=== PATIENT | male | born 1985 | race Asian ===

== ENCOUNTER 2017-11-29 11:32 | Emergency (ER) | payer SELFPAY ==
[2017-11-29 12:17] VITALS: BP 148/119
--- NOTE | 2017-11-29 12:40 | ED Physician Documentation ---
History of Present Illness - Stated complaint Stated Complaint: LONG - Chief complaint Chief Complaint: General - History obtained from History obtained from: Other (Most of the history is from the mother using the Dispatch assistant administrator tablet.) - History of Present Illness Timing: Chronic (This is a 32-year-old gentleman who recently relocated from [place]. He has a history of schizophrenia and was diagnosed at age 19. He came from [facility] being maintained on carbamazepine, Zyprexa and Risperdal. He went to an urgent care about a month ago, and these meds were refilled. He went back today for refill but he was referred to the hospital for further evaluation and treatment. Specifically he complains of headaches, but these been going on since the age of 19, and when asked him if he aches currently in pain he says no. Mom says he had a CT scan of the head and [place] a little over a month ago that per her was negative. She says that he is pretty much nonfunctional and completely addicted to cigarettes, the only time he really decompensates from a behavioral perspective if worse if she tries to get him to quit smoking at which point he gets angry. He smokes about 10 packs of cigarettes per day per the mother. He also has what appears to be a fungal infection of the feet which she would like treated. In contrast to the nurse's notes, the mom says per the assistant administrator he has never had seizures or epilepsy.) Review of Systems Unable to obtain: Confused PD PAST MEDICAL HISTORY - Past Medical History Past Medical History: Yes Psych: Schizophrenia - Past Surgical History Past Surgical History: No - Present Medications Home Medications: Ambulatory Orders Medication Instructions Recorded Confirmed Carbamazepine 200 mg PO DAILY #7 tablet 11/29/17 OLANZapine [Olanzapine] 10 mg PO DAILY #7 tablet 11/29/17 Risperidone [Risperdal] 2 mg PO DAILY #7 tablet 11/29/17 Terbinafine HCl 250 mg PO DAILY #84 tablet 11/29/17 - Social History Does the pt smoke?: Yes Smoking Status: Current every day smoker Does the pt drink ETOH?: No Does the pt have substance abuse?: No - Immunizations Immunizations are current?: No - POLST Patient has POLST: No PD ED PE NORMAL - Vitals Vital signs reviewed: Yes - General General: Other (He is alert and cooperative with disconnected affect and knows the day of the week but not the date. 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 Eye Opening: Spontaneous Motor: Obeys Commands Verbal: Confused GCS Score: 14 - Psych Psych: Normal mood, Normal affect Results - Vitals Vitals: Vital Signs - 24 hr 11/29/17 12:04 Temperature 35.8 C L Heart Rate 89 Respiratory 15 Rate Blood Pressure 148/119 H O2 Saturation 99 Oxygen O2 Source Room air - Labs Labs: Laboratory Tests 11/29/17 11/29/17 11/29/17 12:55 12:55 12:55 WBC 12.3 H RBC 5.27 Hgb 15.4 Hct 46.7 MCV 88.5 MCH 29.3 MCHC 33.1 RDW 14.1 Plt Count 249 MPV 6.9 L Neut # (Auto) 10.3 H Lymph # (Auto) 1.3 L [place] # (Auto) 0.7 Eos # (Auto) 0.0 Baso # (Auto) 0.0 Absolute Nucleated RBC 0.00 Nucleated RBC % 0.0 Sodium 133 L Potassium 3.9 Chloride 102 Carbon Dioxide 26 Anion Gap 5.0 L BUN 15 Creatinine 1.0 Estimated GFR (MDRD) 87 L Glucose 108 H Calcium 8.6 Total Bilirubin 0.9 AST 52 H ALT 62 H Alkaline Phosphatase 112 Total Protein 7.3 Albumin 3.7 Globulin 3.6 Albumin/Globulin Ratio 1.0 Lipase 32 TSH 2.15 Last Dose Date UNK Last Dose Time UNK Carbamazepine 2.6 PD MEDICAL DECISION MAKING - ED course ED course: After using interpreted the initial Plan was to get labs and do tele-psychiatry consultation, however after a very short time the mom became anxious and wanted to leave. Using the assistant administrator phone again I discussed with him that I really thought that her son was pretty mentally ill and would benefit from a psychiatric consultation, however she did not want to wait or go through the process she just wanted refills of medications. I made it clear that I did not think that this was appropriate, and asked her to return soon sometime when she had more time to spend with us to go through full psychiatry consultation process. - Sepsis Event Vital Signs: Vital Signs - 24 hr 11/29/17 12:04 Temperature 35.8 C L Heart Rate 89 Respiratory 15 Rate Blood Pressure 148/119 H O2 Saturation 99 Oxygen O2 Source Room air Departure - Departure Disposition: 07 Against Medical Advice Clinical Impression: Schizophrenia Qualifiers: Schizophrenia type: unspecified Qualified Code(s): F20.9 - Schizophrenia, unspecified Tinea pedis Qualifiers: Laterality: right Qualified Code(s): B35.3 - Tinea pedis Condition: Good Record reviewed to determine appropriate education?: Yes Instructions: ED Schizophrenia General Prescriptions: Carbamazepine 200 mg PO DAILY #7 tablet OLANZapine [Olanzapine] 10 mg PO DAILY #7 tablet Risperidone [Risperdal] 2 mg PO DAILY #7 tablet Terbinafine HCl 250 mg PO DAILY #84 tablet Print Language: Mongolian Comments: Ti ngh con gato bn s c li t jorge ni chuyn vi bc s tm thn. Vui lng sera li ph ng cp cu y cng sm cng tt khi bn c mt vi gi chi shivani vi chng ti hon tt qu trnh ny. Chng ti y mi lc. Discharge Date/Time: 11/29/17 13:34
[2017-11-29 13:05] LABS: BASOPHILS % (AUTO) 0.3 %; EOSINOPHILS % (AUTO) 0.2 %; HGB - HEMOGLOBIN 15.4 g/dL (14.0-18.0); LYMPHOCYTES # (AUTO) 1.3 10^3/uL (1.5-3.5); LYMPHOCYTES % (AUTO) 10.3 %; MEAN CORPUSCULAR HEMOGLOBIN 29.3 pg (27.0-31.0); MEAN CORPUSCULAR HGB CONC 33.1 g/dL (32.0-36.0); MEAN CORPUSCULAR VOLUME 88.5 fL (80.0-94.0); MEAN PLATELET VOLUME 6.9 fL (7.4-11.4); MONOCYTES # (AUTO) 0.7 10^3/uL (0.0-1.0); MONOCYTES % (AUTO) 5.4 %; NEUTROPHILS # (AUTO) 10.3 10^3/uL (1.5-6.6); NEUTROPHILS % (AUTO) 83.8 %; PLT - PLATELET COUNT 249 10^3/uL (130-450); RED BLOOD COUNT 5.27 10^6/uL (4.70-6.10); RED CELL DISTRIBUTION WIDTH 14.1 % (12.0-15.0); WHITE BLOOD COUNT 12.3 x10^3/uL (4.8-10.8)
[2017-11-29 13:24] LABS: ALBUMIN 3.7 g/dL (3.2-5.5); ALKALINE PHOSPHATASE 112 IU/L (42-121); ALT ALANINE AMINOTRANSFERASE 62 IU/L (10-60); AST ASPARTATE AMINOTRANSFERASE 52 IU/L (10-42); BILIRUBIN,TOTAL 0.9 mg/dL (0.2-1.0); BUN - BLOOD UREA NITROGEN 15 mg/dL (6-20); CALCIUM 8.6 mg/dL (8.5-10.3); CARBAMAZEPINE (TEGRETOL) 2.6 ug/mL; CARBON DIOXIDE - CO2 26 mmol/L (21-32); CHLORIDE 102 mmol/L (101-111); GFR - MDRD 87 (>89); GLUCOSE 108 mg/dL (70-100); LIPASE 32 U/L (22-51); SODIUM 133 mmol/L (135-145); TOTAL PROTEIN 7.3 g/dL (6.7-8.2)
== END 2017-11-29 13:34 | disposition left against medical advice (07) ==
LOC: ED 11:32
DX: F20.9 Schizophrenia, unspecified (principal); B35.3 Tinea pedis; Z53.29 Procedure and treatment not carried out because of patient's decision for other reasons; F17.210 Nicotine dependence, cigarettes, uncomplicated
CPT/HCPCS: 36415; 80053; 80156; 83690; 84443; 85025; 99282; 99284

== ENCOUNTER 2018-02-19 23:41 | Emergency (ER) | payer OTHER ==
[2018-02-20 00:06] VITALS: BP 131/94
--- NOTE | 2018-02-20 00:48 | ED Physician Documentation ---
History of Present Illness - Stated complaint Stated Complaint: MALE - Chief complaint Chief Complaint: General - History obtained from History obtained from: Family (mother) - Additonal information Additional information: unable to obtain complete HPI and unable to obtain ROS and physical examination due to patient's refusal to evaluation. Patient was driven to ED by his mother; they both speak only Icelandic. Translation provided via Webcom device. When I enter the room, patient is standing at the door. As soon as the mother identifies me as the doctor, he then walks out of the room and into the hallway just outside of the room. Mother says that she brought him here for evaluation of a groin rash that has been ongoing for at least 2 weeks. She says he has been having difficulty sleeping because of the rash. She says he has refused to see a doctor because he is too embarrassed. Recently immigrated from [place], few months ago. Was evaluated in November (2017) in this ED for medication refills. Review of Systems Unable to obtain: Uncooperative PD PAST MEDICAL HISTORY - Past Medical History Psych: Schizophrenia - Past Surgical History Past Surgical History: No - Present Medications Home Medications: Ambulatory Orders Medication Instructions Recorded Confirmed Carbamazepine 200 mg PO DAILY #7 tablet 11/29/17 OLANZapine [Olanzapine] 10 mg PO DAILY #7 tablet 11/29/17 Risperidone [Risperdal] 2 mg PO DAILY #7 tablet 11/29/17 Terbinafine HCl 250 mg PO DAILY #84 tablet 11/29/17 - Allergies Allergies/Adverse Reactions: Allergies Allergy/AdvReac Type Severity Reaction Status Date / Time No Known Drug Allergies Allergy Verified 02/20/18 00:07 - Social History Does the pt smoke?: Yes Smoking Status: Current every day smoker Does the pt drink ETOH?: No Does the pt have substance abuse?: No - Immunizations Immunizations are current?: No - POLST Patient has POLST: No Results - Vitals Vitals: Oxygen O2 Source Room air PD MEDICAL DECISION MAKING - ED course Complexity details: d/w family ED course: Patient refuses to stay in the room, refuses to sit on stretcher. He walked out of the room as soon as I walked in (mother asked if I was the doctor, and when I nodded to indicate the affirmative, she said something to the patient and he then walked away from the room into the hallway). He was already standing at the door when I first walked in to the room. I repeatedly explained to the mother, via Cyracom sample collector, that the patient needs to be agreeable to be examined in order to proceed. She repeatedly tried to convince patient to come into the room for examination, but he refused. He rapidly became increasingly agitated, standing in hallway, moving further away from room, and eventually yelling very loudly at her. I continued to explain to the mother that I cannot force the patient to submit to an exam. She shows me documents that indicate a diagnosis of schizophrenia, but there is no documentation in the folder she provides to me that indicates she is P.O.A., and no documentation indicating he is incapable of making autonomous decisions. She shows me a document that indicates he is due to appear in court tomorrow afternoon and asks for a note excusing him from court. I explained that there is no indication for a medical excuse from court at this time and I would not be providing such an excuse. She asks if I can prescribe something to treat his rash, and I explained that without examining the patient , I cannot provide any prescriptions. She continued to entreat the patient to submit to exam, and he continued to yell in the hallway at her. I told mother that if he does not want to be examined, he will be discharged. I told her that if he continues to stay in the hallway and yell, the police will be called. He continued to yell and thus police were called and patient was escorted to waiting room. - Sepsis Event Vital Signs: Oxygen O2 Source Room air Departure - Departure Disposition: 01 Home, Self Care Clinical Impression: Refusal of care by patient Condition: Stable Follow-Up: [facility] [place] [Provider Group] [facility] [Provider Group] Comments: You have refused to be evaluated tonight in the emergency department. You are welcome to return at any time if you want to be evaluated. You should make an appointment to see a primary care physician as soon as possible for evaluation of your concerns and to arrange for regular prescriptions of your medications. Discharge Date/Time: 02/20/18 01:29
== END 2018-02-20 01:29 | disposition home or self-care (01) ==
LOC: ED 23:41
DX: Z53.21 Procedure and treatment not carried out due to patient leaving prior to being seen by health care provider (principal)
CPT/HCPCS: 99281

== ENCOUNTER 2018-02-26 14:56 | Outpatient (CLI) | payer OTHER | END 2018-02-26 14:57 | disposition short-term general hospital (02) | LOC: EMS 14:56 | PROVIDERS: ATTEND Surgery | DX: R60.9 Edema, unspecified (principal); R52 Pain, unspecified | CPT/HCPCS: A0425; A0429 ==

== ENCOUNTER 2019-04-07 02:33 | Outpatient (CLI) | payer MEDICAID | END 2019-04-07 02:34 | disposition critical access hospital (66) | LOC: EMS 02:33 | PROVIDERS: ATTEND Surgery | DX: R60.0 Localized edema (principal); R32 Unspecified urinary incontinence; R46.89 Other symptoms and signs involving appearance and behavior | CPT/HCPCS: A0425; A0429; A0999 ==

== ENCOUNTER 2019-04-07 02:55 | Inpatient (IN) | payer MEDICAID, OTHER ==
--- NOTE | 2019-04-07 03:08 | ED Physician Documentation ---
History of Present Illness - Stated complaint Stated Complaint: SOA, LEG SWELLING - Chief complaint Chief Complaint: Cardiac - Additonal information Additional information: This is a 34-year-old male who is Uzbek speaking, with a history of heart failure with an ejection fraction between 15 and 40%, psychogenic primary polydipsia, and schizophrenia, who was brought in for leg swelling, swelling in his groin, and problems with his mental health. History is obtained largely from patient's mother using a Uzbek telephonic hair worker, patient provides very little history. Patient's mother states that he has been hospitalized in the past for leg swelling and issues with urination. Recently he has begun urinating on the floor, and he is having difficulty walking because he is so much pain in his legs with swelling. He has had swelling up to level his waist and his scrotum is enlarged. He reportedly is compliant with his medications. His mother brings in discharge summaries, he had a admission from 02/27 to 03/18/2018 at [facility], when he was diagnosed with CHF with dilated cardiomyopathy of unknown etiology, with ejection fraction of 15% initially, improved to 40% after diuresis. He also had decompensated schizophrenia managed with olanzapine and Ativan per psychiatry, though now he takes risperidone and alprazolam. He needed fluid restriction during his stay for psychogenic polydipsia and a sodium of 129.. He is supposed to be on carvedilol, furosemide 40 mg, lisinopril. Patient denies chest pain, he might have shortness of breath-because he first answers yes but then afterwards states it feels normal. He denies pain with urination Review of Systems Unable to obtain: Confused Constitutional: denies: Fever Cardiac: reports: Pedal edema GI: denies: Abdominal Pain : reports: Other (Urinating inappropriatel y). denies: Dysuria PD PAST MEDICAL HISTORY - Past Medical History Past Medical History: Yes Cardiovascular: Congestive heart failure, Other Psych: Schizophrenia Other Past Medical History: psychogenic primary polydipsia, cardiomyopathy - Past Surgical History Past Surgical History: No - Present Medications Home Medications: Ambulatory Orders Medication Instructions Recorded Confirmed OLANZapine [Olanzapine] 10 mg PO DAILY #7 tablet 11/29/17 Risperidone [Risperdal] 2 mg PO DAILY #7 tablet 11/29/17 ALPRAZolam [Alprazolam] 0.5 mg PO 04/07/19 04/07/19 - Allergies Allergies/Adverse Reactions: Allergies Allergy/AdvReac Type Severity Reaction Status Date / Time No Known Drug Allergies Allergy Verified 02/20/18 00:07 - Social History Does the pt smoke?: Yes Smoking Status: Current every day smoker Does the pt drink ETOH?: No Does the pt have substance abuse?: No - Immunizations Immunizations are current?: No - POLST Patient has POLST: No PD ED PE NORMAL - Vitals Vital signs reviewed: Yes - General General: No acute distress - HEENT HEENT: Atraumatic, Other (Possible sclera icterus versus slight pigmentation.) - Neck Neck: Supple, no meningeal sign - Cardiac Cardiac: Other (Tachycardic, regular rhythm) - Respiratory Respiratory: No respiratory distress, Clear bilaterally - Abdomen Abdomen: Soft, Non tender, Non distended - Male Male : Other (Penis and scrotum are grossly edematous. No wounds seen. A rash consistnet with candidiasis is present in the skin.) - Derm Derm: Warm and dry - Extremities Extremities: No deformity - Neuro Neuro: Other (Difficult to fully assess due to language barries, seems to be able to answer some basic questions.) - Psych Psych: Other (cooperative and friendly, difficult to speak to even with metal forger's assistant - patient's responses are often unclear) Results - Vitals Vitals: Vital Signs - 24 hr 04/07/19 04/07/19 04/07/19 02:51 03:49 05:00 Temperature 36.8 C Heart Rate 109 H 101 H 95 Respiratory 18 18 19 Rate Blood Pressure 149/134 H 142/108 H 132/99 H O2 Saturation 100 100 100 04/07/19 06:00 Temperature Heart Rate 94 Respiratory 21 Rate Blood Pressure 140/111 H O2 Saturation 100 Oxygen O2 Source Room air - EKG (time done) 2:57 Other comments: Other comments (Rate 103, rhythm sinus tachycardia, there is slight Lateral ST depression in the precordial leads, as well as T wave inversions in V5 and V6.) - Labs Labs: Laboratory Tests 04/07/19 04/07/19 04/07/19 03:18 03:30 03:30 WBC 6.7 RBC 5.28 Hgb 13.8 L Hct 44.5 MCV 84.3 MCH 26.1 L MCHC 31.0 L RDW 15.8 H Plt Count 222 MPV 8.8 Neut # (Auto) 4.1 Lymph # (Auto) 1.7 [place] # (Auto) 0.7 Eos # (Auto) 0.2 Baso # (Auto) 0.1 Absolute Nucleated RBC 0.00 Nucleated RBC % 0.0 PT 17.2 H INR 1.5 H Sodium Potassium Chloride Carbon Dioxide Anion Gap BUN Creatinine Estimated GFR (MDRD) Glucose Calcium Total Bilirubin AST ALT Alkaline Phosphatase Troponin I High Sens B-Natriuretic Peptide Total Protein Albumin Globulin Albumin/Globulin Ratio Lipase TSH Urine Color YELLOW Urine Clarity CLEAR Urine pH 7.0 Ur Specific Carter <=1.005 Urine Protein 100 H Urine Glucose (UA) NEGATIVE Urine Ketones NEGATIVE Urine Occult Blood NEGATIVE Urine Nitrite NEGATIVE Urine Bilirubin NEGATIVE Urine Urobilinogen 2 H Ur Leukocyte Esterase NEGATIVE Urine RBC None Seen Urine WBC 0-3 Ur Squamous Epith Cells NONE SEEN Urine Bacteria None Seen Urine Mucus Marked Strands Ur Microscopic Review INDICATED Urine Culture Comments NOT INDICATED Salicylates Urine Opiates Screen NEGATIVE Ur Oxycodone Screen NEGATIVE Urine Methadone Screen NEGATIVE Ur Propoxyphene Screen NEGATIVE Acetaminophen Ur Barbiturates Screen NEGATIVE Ur Tricyclics Screen NEGATIVE Ur Phencyclidine Scrn NEGATIVE Ur Amphetamine Screen NEGATIVE U Methamphetamines Scrn NEGATIVE U Benzodiazepines Scrn POSITIVE H Urine Cocaine Screen NEGATIVE U Cannabinoids Screen NEGATIVE Ethyl Alcohol 04/07/19 04/07/19 04/07/19 03:30 03:30 03:30 WBC RBC Hgb Hct MCV MCH MCHC RDW Plt Count MPV Neut # (Auto) Lymph # (Auto) [place] # (Auto) Eos # (Auto) Baso # (Auto) Absolute Nucleated RBC Nucleated RBC % PT INR Sodium 134 L Potassium 3.9 Chloride 98 L Carbon Dioxide 26 Anion Gap 10.0 BUN 13 Creatinine 0.9 Estimated GFR (MDRD) 97 Glucose 98 Calcium 8.3 L Total Bilirubin 2.1 H AST 21 ALT 23 Alkaline Phosphatase 179 H Troponin I High Sens 120.8 H* B-Natriuretic Peptide 1436 H Total Protein 6.3 L Albumin 3.0 L Globulin 3.3 Albumin/Globulin Ratio 0.9 L Lipase 26 TSH Urine Color Urine Clarity Urine pH Ur Specific Carter Urine Protein Urine Glucose (UA) Urine Ketones Urine Occult Blood Urine Nitrite Urine Bilirubin Urine Urobilinogen Ur Leukocyte Esterase Urine RBC Urine WBC Ur Squamous Epith Cells Urine Bacteria Urine Mucus Ur Microscopic Review Urine Culture Comments Salicylates < 6.0 Urine Opiates Screen Ur Oxycodone Screen Urine Methadone Screen Ur Propoxyphene Screen Acetaminophen < 10 L Ur Barbiturates Screen Ur Tricyclics Screen Ur Phencyclidine Scrn Ur Amphetamine Screen U Methamphetamines Scrn U Benzodiazepines Scrn Urine Cocaine Screen U Cannabinoids Screen Ethyl Alcohol < 5.0 04/07/19 04/07/19 03:30 05:45 WBC RBC Hgb Hct MCV MCH MCHC RDW Plt Count MPV Neut # (Auto) Lymph # (Auto) [place] # (Auto) Eos # (Auto) Baso # (Auto) Absolute Nucleated RBC Nucleated RBC % PT INR Sodium Potassium Chloride Carbon Dioxide Anion Gap BUN Creatinine Estimated GFR (MDRD) Glucose Calcium Total Bilirubin AST ALT Alkaline Phosphatase Troponin I High Sens 125.0 H* B-Natriuretic Peptide Total Protein Albumin Globulin Albumin/Globulin Ratio Lipase TSH 2.90 Urine Color Urine Clarity Urine pH Ur Specific Carter Urine Protein Urine Glucose (UA) Urine Ketones Urine Occult Blood Urine Nitrite Urine Bilirubin Urine Urobilinogen Ur Leukocyte Esterase Urine RBC Urine WBC Ur Squamous Epith Cells Urine Bacteria Urine Mucus Ur Microscopic Review Urine Culture Comments Salicylates Urine Opiates Screen Ur Oxycodone Screen Urine Methadone Screen Ur Propoxyphene Screen Acetaminophen Ur Barbiturates Screen Ur Tricyclics Screen Ur Phencyclidine Scrn Ur Amphetamine Screen U Methamphetamines Scrn U Benzodiazepines Scrn Urine Cocaine Screen U Cannabinoids Screen Ethyl Alcohol - Rads (name of study) CXR Radiology: Other (Small lung volumes without acute cardiopulmonary abnormality) PD MEDICAL DECISION MAKING - ED course Complexity details: considered differential (CHF, PNA, UTI, cellulitis, yeast infection, schizophrenia, electrolyte abnormality) ED course: On exam patient is extremely edematous to the level of his abdomen. He is in no respiratory distress and is on room air. EKG shows slight lateral ST depression and T wave inversions, he does not seem to have any chest pain or shortness of breath. Labs are notable for an elevated BNP and troponin, second troponin is stable and given pt's history and clinical picture CHF exacerbation is much more likely than ACS/UT. He was given 40mg of lasix IV. He has signs of liver dysfunction with mildly elevated INR and bilirubin, but no AST/ALT elevations, and no RUQ tenderness. This may be secondary to congestion from his heart failure. Acetaminophen negative. Regarding his urination on the floor, it is unclear if this is due to p sychiatric decompensation or just limited mobility and edema of his genitals making it more difficult to urinate. He was admitted to the hospital under the care of Dr. Zavala for heart failure exacerbation and further work up after I updated patient and his mother on our results and the plan. They are in agreement. Departure - Departure Disposition: 66 [facility] DC/Xfer Clinical Impression: Heart failure Qualifiers: Heart failure type: unspecified Heart failure chronicity: acute on chronic Qualified Code(s): I50.9 - Heart failure, unspecified Edema Qualifiers: Edema type: unspecified Qualified Code(s): R60.9 - Edema, unspecified Discharge Date/Time: 04/07/19 07:38
[2019-04-07 03:35] LABS: MUDS CUTOFF CONCENTRATIONS CUTOFF CONC BELOW:
[2019-04-07 03:37] LABS: BILIRUBIN,URINE NEGATIVE (NEGATIVE); CLARITY,URINE CLEAR (CLEAR); GLUCOSE, URINE (UA) NEGATIVE (NEGATIVE); KETONES,URINE (UA) NEGATIVE (NEGATIVE); LEUKOCYTE ESTERASE, URINE NEGATIVE (NEGATIVE); NITRITE,URINE NEGATIVE (NEGATIVE); OCCULT BLOOD,URINE NEGATIVE (NEGATIVE); PROTEIN,URINE 100 mg/dL (NEGATIVE); UROBILINOGEN,URINE 2 E.U./dL (NORMAL)
[2019-04-07 03:42] LABS: BASOPHILS # (AUTO) 0.1 10^3/uL (0.0-0.1); BASOPHILS % (AUTO) 0.7 %; EOSINOPHILS # (AUTO) 0.2 10^3/uL (0.0-0.7); EOSINOPHILS % (AUTO) 2.7 %; HGB - HEMOGLOBIN 13.8 g/dL (14.0-18.0); LYMPHOCYTES # (AUTO) 1.7 10^3/uL (1.5-3.5); LYMPHOCYTES % (AUTO) 25.5 %; MEAN CORPUSCULAR HEMOGLOBIN 26.1 pg (27.0-31.0); MEAN CORPUSCULAR VOLUME 84.3 fL (80.0-94.0); MEAN PLATELET VOLUME 8.8 fL (7.4-11.4); MONOCYTES # (AUTO) 0.7 10^3/uL (0.0-1.0); MONOCYTES % (AUTO) 9.8 %; NEUTROPHILS # (AUTO) 4.1 10^3/uL (1.5-6.6); NEUTROPHILS % (AUTO) 60.9 %; PLT - PLATELET COUNT 222 10^3/uL (130-450); RED BLOOD COUNT 5.28 10^6/uL (4.70-6.10); RED CELL DISTRIBUTION WIDTH 15.8 % (12.0-15.0); WHITE BLOOD COUNT 6.7 x10^3/uL (4.8-10.8)
--- NOTE | 2019-04-07 03:42 | XRAY Report ---
Reason: Chest Pain Procedure Date: 04/07/2019 Accession Number: [id number] / [id number] Procedure: XR - Chest 1 View X-Ray CPT Code: 41490 FULL RESULT: EXAM: CHEST RADIOGRAPHY EXAM DATE: 04/07/2019 03:31 AM. CLINICAL HISTORY: Chest Pain. COMPARISON: None. TECHNIQUE: 1 view. FINDINGS: Lungs/Pleura: Lung volumes are small. No focal opacities evident. No pleural effusion. No pneumothorax. Mediastinum: Within exam limitations, the cardiomediastinal contour is normal. Other: None. IMPRESSION: Small lung volumes. No acute cardiopulmonary abnormality demonstrated. RADIA
[2019-04-07 03:43] LABS: BACTERIA,URINE None Seen /HPF (None Seen); MUCUS,URINE Marked Strands; RBC,URINE None Seen /HPF (0-5); SQUAMOUS EPITHELIAL CELL,UR NONE SEEN (<= Few)
[2019-04-07 03:49] LABS: AMPHETAMINE SCREEN,URINE NEGATIVE (NEGATIVE); BENZODIAZEPINES SCREEN, URINE POSITIVE (NEGATIVE); COCAINE SCREEN URINE NEGATIVE (NEGATIVE); METHADONE SCREEN, URINE NEGATIVE (NEGATIVE); METHAMPHETAMINES SCREEN, URINE NEGATIVE (NEGATIVE); OPIATE SCREEN, URINE NEGATIVE (NEGATIVE); OXYCODONE SCREEN, URINE NEGATIVE (NEGATIVE); PROPOXYPHENE SCREEN, URINE NEGATIVE (NEGATIVE); TRICYCLIC ANTIDEPRESSANT,URINE NEGATIVE (NEGATIVE)
[2019-04-07 03:49] LABS: INR 1.5 (0.8-1.2); PT - PROTHROMBIN TIME 17.2 secs (9.9-12.6)
[2019-04-07 04:00] LABS: ACETAMINOPHEN < 10 ug/mL (10-30); ALBUMIN/GLOBULIN RATIO 0.9 (1.0-2.2); ALKALINE PHOSPHATASE 179 IU/L (42-121); ALT ALANINE AMINOTRANSFERASE 23 IU/L (10-60); AST ASPARTATE AMINOTRANSFERASE 21 IU/L (10-42); BILIRUBIN,TOTAL 2.1 mg/dL (0.2-1.0); BUN - BLOOD UREA NITROGEN 13 mg/dL (6-20); CALCIUM 8.3 mg/dL (8.5-10.3); CARBON DIOXIDE - CO2 26 mmol/L (21-32); CHLORIDE 98 mmol/L (101-111); CREATININE 0.9 mg/dL (0.6-1.2); GFR - MDRD 97 (>89); GLUCOSE 98 mg/dL (70-100); LIPASE 26 U/L (22-51); SALICYLATE < 6.0 mg/dL; SODIUM 134 mmol/L (135-145); TOTAL PROTEIN 6.3 g/dL (6.7-8.2)
[2019-04-07] MEDS ORDERED: FUROSEMIDE 100 MG/10 ML VIAL IVP STA (04:50)
[2019-04-07] MEDS ORDERED: FUROSEMIDE 40 MG/4 ML VIAL IVP STA (04:56)
[2019-04-07] MEDS ORDERED: ONDANSETRON ODT 4 MG TABLET TL PRN (06:42)
[2019-04-07] MEDS ORDERED: oxyCODONE 5 MG TABLET PO PRN (06:42)
--- NOTE | 2019-04-07 07:20 | HISTORY & PHYSICAL EXAMINATION ---
Chief Complaint - Chief Complaint Chief Complaint: Leg swelling History of Present Illness - Admitted From Admitted From:: Home - History Obtained From Records Reviewed: Yes History obtained from: Primarily from mother, Patient, ER notes Exam Limitations: Patient gives short answers. - History of Present Illness HPI Comment/Other: This is a 34 year old [place] male with a past medical history significant for schizophrenia and dilated cardiomyopathy who presents from home after his mother was concerned that his lower extremities were becoming more swollen and edematous. Most of the history is obtained from the mother as the patient gives short answers which mostly consist of yes and no. His mother tells me his ilda gaffney has been going on for one year. He was hospitalized last year at [facility] for what appears to be heart failure. She states he has not been taking any of his cardiac medications. He has been taking his medications for Schizophrenia which they got from [place]. He does not see any physicians here as he refuses to follow up. His mother tells me that he was in [place] earlier this year and just returned to the area this month. He has been taking Olanzapine 10mg, Risperidone 2mg, and Xanax 0.5mg. The patient reports no chest pain, shortness of breath. He denies that his legs are painful but does endorse swelling. In the emergency department, he was tachycardic in the 100's but saturating 100% on room air. Labs revealed a sodium of 134, BNP of 1436, and troponin of 120.8. Given his significant lower extremity, Medicine was consulted for admission. History - Past Medical History Cardiovascular: reports: Congestive heart failure Psych: reports: Schizophrenia MRSA Hx?: No Other Past Medical History: Psychogenic primary polydipsia, Dilated cardiom yopathy - Family & Social History Family History Comment/Other: His mother reports that his grandmother had cardiac problems and required a "heart replacement." One of the patient's step sisters also has cardiac problems but she is unsure what they are. Reports no other family history. Living arrangement: At home Living Situation: With family Social History Notes: He currently does not work. He has been back in forth from [place] and [facility]. He just returned from [facility] one month ago. His mother reports that he smokes but does not drink alcohol. - Substance History Use: Uses substance without health or social issues: Tobacco - POLST Patient has POLST: No Meds/Allgy - Home Medications Home Medications: Ambulatory Orders Medication Instructions Recorded Confirmed OLANZapine [Olanzapine] 10 mg PO DAILY #7 tablet 11/29/17 Risperidone [Risperdal] 2 mg PO DAILY #7 tablet 11/29/17 ALPRAZolam [Alprazolam] 0.5 mg PO 04/07/19 04/07/19 - Allergies Allergies/Adverse Reactions: Allergies Allergy/AdvReac Type Severity Reaction Status Date / Time No Known Drug Allergies Allergy Verified 02/20/18 00:07 Review of Systems - Constitutional Constitutional: denies: Fatigue, Fever, Chills - Cardiovascular Cariovascular: reports: Edema. denies: Palpitations, Chest pain, Exertional dyspnea, Decr. exercise tolerance - Respiratory Respiratory: denies: SOB at rest, SOB with exertion - Gastrointestinal Gastrointestinal: denies: Abdominal pain - Neurological Neurological: denies: General weakness, Focal weakness - All Other Systems All Other Systems: reports: Other (ROS is limited as patient does not answer all questions despite using barbadian internet sales representative.) Exam - Vital Signs Reviewed Vital Signs: Yes Vital Signs: Vital Signs x48h Temp Pulse Resp BP Pulse Ox 04/07/19 06:00 94 21 140/111 H 100 04/07/19 05:00 95 19 132/99 H 100 04/07/19 03:49 101 H 18 142/108 H 100 04/07/19 02:51 36.8 C 109 H 18 149/134 H 100 - Physical Exam General Appearance: positive: No acute distress, Alert Eyes Bilateral: positive: Normal inspection ENT: positive: ENT inspection nml Neck: positive: Nml inspection Respiratory: positive: Other (Tachypnic but no rales, wheeing or rhonci.) Cardiovascular: positive: Regular rate & rhythm, No murmur, Tachycardia. negative: Bradycardia, Systolic murmur Abdomen: positive: Non-tender, No distention. negative: Tenderness, Guarding, Rebound Rectal: positive: Other (Testicles are edematous.) Skin: positive: Color nml, Warm, Dry, Other (There is dermatitis over his lower extremities at his shins likely from edema.) Extremities: positive: Pedal edema (He has significant +3 pitting edema in his lower extremities up to his abdomen.) Neurologic/Psychiatric: positive: Oriented x3, Motor nml. negative: Weakness Conclusion/Plan - Problem List (1) Acute on chronic HFrEF (heart failure with reduced ejection fraction) Conclusion/Plan: Presents with significant lower extremity edema up to the abdomen and testicles. Fortunately he is not hypoxic although BNP is >1000. He will need aggressive diuresis with Lasix 40mg IV twice daily. Resume Carvedilol and Lisinopril. Fluid restriction of 2L and low sodium diet. Strict I's and O's and daily weights. Elevate lower extremities. Obtain outside records. (2) Dilated cardiomyopathy Conclusion/Plan: We have requested records from his prior hospitalizations at [facility] and [facility] to obtain further information on his cardiac history. It appears he was hospitalized last year at [facility] and his EF was as low as 15% at that time and improved to 40% prior to discharge. He unfortunately has not been taking his cardiac medications so there is concern his EF may have decreased. The etiology of his cardiomyopathy is not clear. Will obtain an Echo tomorrow for further evaluation. (3) Elevated troponin Conclusion/Plan: His troponin is >100 although the increase appears to be plateauing. Suspect this may be demand ischemia in the setting of heart failure although his EKG does reveal T-wave inversions. There is no prior EKG to compare to. Will trend troponin and if it continues to rise, will administer Aspirin and contact Cardiology. (4) Elevated INR Conclusion/Plan: His INR is elevated at 1.5 which I suspect is likely congestive hepatopathy although his AST/ALT are normal. He does not drink alcohol per the mother which makes alcohol less likely of a cause. He also does not appear malnourish so do not suspect vitamin K deficiency. Will check INR in the AM again and obtain ultrasound of the liver. (5) Schizophrenia Conclusion/Plan: Stable. Obtains his medications from [place] where he was last month. Will continue Olanzapine, Risperidone, and Xanax PRN. Qualifiers: Schizophrenia type: unspecified Qualified Code(s): F20.9 - Schizophrenia, unspecified - Lab Results Lab results reviewed: Yes Fish Bones: 04/07/19 03:30 04/07/19 03:30 - Diagnostic Imaging Results Diagnostic Imaging Results: positive: Final report reviewed - EKG Results EKG Interpreted Independently: Yes EKG Comparison: No prior EKG EKG Findings: Sinus tachycardia with T-wave inversions in leads II, II, aVF, V5, and V6. No prior EKG to compare to. Core Measures - Anticipated LOS I expect patient to be DC'd or transferred within 96 hours.: Yes - Issues Hospital Issues and Management Plan: Acute on chronic heart failure requiring IV diuresis. - DVT/VTE - Prophylaxis VTE/DVT Device ordered at admit?: No Not Ordered - Medical Reason: Contraindicated VTE/DVT Prophylaxis med ordered at admit?: Yes
[2019-04-07] MEDS ORDERED: ACETAMINOPHEN 325 MG TABLET PO PRN (08:25)
[2019-04-07] MEDS: SODIUM CHLORIDE FLUSH 0.9% 10 ML SYRINGE IVP SCH ×2 (09:15→16:36)
[2019-04-07] MEDS: ENOXAPARIN 40 MG/0.4 ML SYRINGE SUBQ SCH (09:15)
[2019-04-07] MEDS: CARVEDILOL 3.125 MG TABLET PO SCH ×2 (09:17→20:36)
[2019-04-07] MEDS: LISINOPRIL 5 MG TABLET PO SCH (09:17)
[2019-04-07] MEDS: POLYETHYLENE GLYCOL 3350 17 GM PACKET PO SCH (10:17)
--- NOTE | 2019-04-07 11:30 | Ultrasound Report ---
Reason: Anasarca and elevated INR. Eval liver. Procedure Date: 04/07/2019 Accession Number: [id number] / [id number] Procedure: US - Abdomen Limited CPT Code: FULL RESULT: EXAM: ABDOMEN ULTRASOUND LIMITED, RUQ EXAM DATE: 04/07/2019 09:23 AM. CLINICAL HISTORY: Anasarca and elevated INR. Evaluate liver. COMPARISON: None. TECHNIQUE: Real-time scanning was performed with static images obtained. FINDINGS: Liver: Upper normal in size and normal in echotexture. 17.8 cm. Main portal vein flow: Hepatopetal. Gallbladder: Nonspecific wall thickening to 5 mm given presence of ascites. Patient is nontender to imaging. No stones. Biliary System: CBD is not specifically assessed. No intrahepatic biliary ductal dilatation. Other: Mild ascites noted in the right upper and lower quadrants and left lower quadrant. Small slip of fluid in Morison's pouch. Dilated urinary bladder measuring 15.5 x 10.3 x 10.6 cm, estimated volume 890 cc. IMPRESSION: 1. Mild ascites. No specific abnormality of the liver demonstrated. 2. Dilated urinary bladder; estimated volume 890 cc. RADIA
[2019-04-07] MEDS ORDERED: LIDOCAINE 2% URO-JET 5 ML SYRINGE UR ONE (13:24)
[2019-04-07] MEDS ORDERED: FUROSEMIDE 40 MG/4 ML VIAL IVP SCH (14:00)
[2019-04-07] MEDS: FUROSEMIDE 40 MG/4 ML VIAL IVP SCH (16:36)
[2019-04-07 20:12] LABS: CALCIUM 8.3 mg/dL (8.5-10.3); CREATININE 1.2 mg/dL (0.6-1.2)
--- NOTE | 2019-04-07 20:15 | Ultrasound Report ---
Reason: Urinary retention. Evaluate for hydronephrosis. Procedure Date: 04/07/2019 Accession Number: [id number] / [id number] Procedure: US - Retroperitoneal CPT Code: FULL RESULT: EXAM: RENAL ULTRASOUND EXAM DATE: 04/07/2019 06:55 PM. CLINICAL HISTORY: Urinary retention. Evaluate for hydronephrosis. COMPARISON: ABDOMEN LIMITED 04/07/2019 8:41 AM. TECHNIQUE: Real-time scanning was performed with static images obtained. FINDINGS: Right Kidney: 9.9 x 5.4 x 5.4 cm. Suboptimal visualization. No hydronephrosis or definite stone. Left Kidney: 12.3 x 6.4 x 5.0 cm. Suboptimal visualization. No hydronephrosis or definite stone. Bladder: Bilateral jets seen. The prevoid bladder volume was 1272 cc, markedly distended. The postvoid bladder volume was 640.5 cc. Other: Small amount of free fluid in the abdomen/pelvis. Gallbladder wall thickening again demonstrated. IMPRESSION: 1. No hydronephrosis. Limited exam. 2. Markedly distended urinary bladder with large postvoid residual. 3. Small amount of ascites. RADIA
[2019-04-07] MEDS: risperiDONE 1 MG TABLET PO SCH (20:36)
[2019-04-08] MEDS: SODIUM CHLORIDE FLUSH 0.9% 10 ML SYRINGE IVP SCH ×3 (01:36→20:43)
[2019-04-08] MEDS: ALPRAZolam 0.25 MG TABLET PO PRN (01:43)
[2019-04-08 05:36] LABS: BASOPHILS % (AUTO) 0.5 %; EOSINOPHILS # (AUTO) 0.1 10^3/uL (0.0-0.7); HGB - HEMOGLOBIN 13.2 g/dL (14.0-18.0); LYMPHOCYTES # (AUTO) 1.3 10^3/uL (1.5-3.5); LYMPHOCYTES % (AUTO) 19.3 %; MEAN CORPUSCULAR HEMOGLOBIN 25.2 pg (27.0-31.0); MEAN CORPUSCULAR HGB CONC 30.5 g/dL (32.0-36.0); MEAN CORPUSCULAR VOLUME 82.8 fL (80.0-94.0); MEAN PLATELET VOLUME 8.8 fL (7.4-11.4); MONOCYTES # (AUTO) 0.5 10^3/uL (0.0-1.0); MONOCYTES % (AUTO) 7.9 %; NEUTROPHILS # (AUTO) 4.6 10^3/uL (1.5-6.6); NEUTROPHILS % (AUTO) 70.1 %; PLT - PLATELET COUNT 228 10^3/uL (130-450); RED BLOOD COUNT 5.23 10^6/uL (4.70-6.10); RED CELL DISTRIBUTION WIDTH 15.9 % (12.0-15.0); WHITE BLOOD COUNT 6.5 x10^3/uL (4.8-10.8)
[2019-04-08 05:43] LABS: INR 1.6 (0.8-1.2); PT - PROTHROMBIN TIME 17.5 secs (9.9-12.6)
[2019-04-08 05:54] LABS: CREATININE 1.2 mg/dL (0.6-1.2)
[2019-04-08 05:55] LABS: CALCIUM 8.3 mg/dL (8.5-10.3); MAGNESIUM 1.9 mg/dL (1.7-2.8)
[2019-04-08] MEDS: FUROSEMIDE 40 MG/4 ML VIAL IVP SCH ×2 (06:52→13:24)
[2019-04-08] MEDS: SODIUM CHLORIDE FLUSH 0.9% 10 ML SYRINGE IVP PRN ×3 (06:53→13:24)
[2019-04-08] MEDS ORDERED: POTASSIUM CHLORIDE 20 MEQ TABLET PO ONE (07:41)
--- NOTE | 2019-04-08 08:59 | PROVIDER PROGRESS NOTE ---
Subjective - Prog Note Date Prog Note Date: 04/08/19 - Subjective Subjective: He continues to deny chest pain and dyspnea. Still has significant scrotal edema. Reports no abdominal pain. He is hungry and requesting breakfast this morning. Current Medications - Current Medications Current Medications: Active Medications Acetaminophen (Tylenol) 650 mg PO Q4HR PRN PRN Reason: Pain or Fever > 38C (100.4F) Alprazolam (Xanax) 0.5 mg PO BID PRN PRN Reason: Anxiety Last Admin: 04/08/19 01:43 Dose: 0.5 mg Carvedilol (Coreg) 3.125 mg PO BID [facility] Last Admin: 04/07/19 20:36 Dose: 3.125 mg Enoxaparin Sodium (Lovenox) 40 mg SUBQ DAILY [facility] Last Admin: 04/07/19 09:15 Dose: 40 mg Furosemide (Lasix Inj 40 Mg Vial) 40 mg IVP BIDDIURETIC [facility] Last Admin: 04/08/19 06:52 Dose: 40 mg Lisinopril (Zestril) 5 mg PO DAILY [facility] Last Admin: 04/07/19 09:17 Dose: 5 mg Olanzapine (Zyprexa Odt) 10 mg TL DAILY [facility] Ondansetron HCl (Zofran Odt) 4 mg TL Q6HR PRN PRN Reason: Nausea / Vomiting Oxycodone HCl (Roxicodone) 5 mg PO Q4HR PRN PRN Reason: Pain 5 to 7 Last Admin: 04/08/19 01:43 Dose: 5 mg Polyethylene Glycol (Miralax) 17 gm PO DAILY [facility] Last Admin: 04/07/19 10:17 Dose: Not Given Risperidone (Risperdal) 2 mg PO QPM [facility] Last Admin: 04/07/19 20:36 Dose: 2 mg Sodium Chloride (Normal Saline Flush 0.9%) 10 ml IVP PRN PRN PRN Reason: NEEDED PER PROVIDER ORDERS Last Admin: 04/08/19 06:53 Dose: 10 ml Sodium Chloride (Normal Saline Flush 0.9%) 10 ml IVP 0100,0900,1700 [facility] Last Admin: 04/08/19 01:36 Dose: 10 ml Tamsulosin HCl (Flomax) 0.4 mg PO DAILY [facility] ALPRAZolam [Alprazolam] 0.5 mg PO 04/07/19 Objective - Vital Signs/Intake & Output Reviewed Vital Signs: Yes Vital Signs: Vital Signs x48h Temp Pulse Resp BP Pulse Ox 04/08/19 08:39 37.2 C 85 20 107/85 H 94 04/08/19 04:04 37.0 C 100 16 139/96 H 99 04/08/19 01:00 36.9 C 92 20 132/90 H 96 Intake & Output: Intake & Output 04/05/19 04/06/19 04/07/19 04/08/19 23:59 23:59 23:59 23:59 Intake Total 1220 300 Output Total 47341 2000 Balance -9180 -1700 - Objective General Appearance: positive: No acute distress, Alert Eyes Bilateral: positive: Normal inspection ENT: positive: ENT inspection nml Neck: positive: Nml inspection Respiratory: positive: No respiratory distress. negative: Wheezes, Rales, Rhonchi Cardiovascular: positive: Regular rate & rhythm, No murmur, Tachycardia. negative: Systolic murmur, Diastolic murmur Abdomen: positive: Non-tender, No distention. negative: Tenderness, Guarding, Rebound Rectal: positive: Other (Significant scrotal edema. Uncircumcised penis.) Skin: positive: Other (Chronic skin changes over lower extremities.) Extremities: positive: Full ROM, Pedal edema (+2 to 3 pitting edema in lower extremities up to his abdomen.) Neurologic/Psychiatric: positive: Motor nml, Other (No focal motor deficits). negative: Weakness - Lab Results Fish Bones: 04/08/19 04:56 04/08/19 04:56 Other Labs: Lab Results x24hrs 04/08/19 04/08/19 04/08/19 Range/Units 04:56 04:56 04:56 WBC (4.8-10.8) x10^3/uL RBC (4.70-6.10) 10^6/uL Hgb (14.0-18.0) g/dL Hct (42.0-52.0) % MCV (80.0-94.0) fL MCH (27.0-31.0) pg MCHC (32.0-36.0) g/dL RDW (12.0-15.0) % Plt Count (130-450) 10^3/uL MPV (7.4-11.4) fL Neut # (Auto) (1.5-6.6) 10^3/uL Lymph # (Auto) (1.5-3.5) 10^3/uL [place] # (Auto) (0.0-1.0) 10^3/uL Eos # (Auto) (0.0-0.7) 10^3/uL Baso # (Auto) (0.0-0.1) 10^3/uL Absolute Nucleated RBC x10^3/uL Nucleated RBC % /100WBC PT 17.5 H (9.9-12.6) secs INR 1.6 H (0.8-1.2) Sodium 139 (135-145) mmol/L Potassium 3.4 L (3.5-5.0) mmol/L Chloride 102 (101-111) mmol/L Carbon Dioxide 26 (21-32) mmol/L Anion Gap 11.0 (6-13) BUN 17 (6-20) mg/dL Creatinine 1.2 (0.6-1.2) mg/dL Estimated GFR (MDRD) 69 L (>89) Glucose 123 H (70-100) mg/dL Calcium 8.3 L (8.5-10.3) mg/dL Magnesium 1.9 (1.7-2.8) mg/dL Troponin I High Sens (2.3-19.7) pg/mL B-Natriuretic Peptide 2014 H (5-100) pg/mL 04/08/19 04/07/19 04/07/19 Range/Units 04:56 17:59 12:05 WBC 6.5 (4.8-10.8) x10^3/uL RBC 5.23 (4.70-6.10) 10^6/uL Hgb 13.2 L (14.0-18.0) g/dL Hct 43.3 (42.0-52.0) % MCV 82.8 (80.0-94.0) fL MCH 25.2 L (27.0-31.0) pg MCHC 30.5 L (32.0-36.0) g/dL RDW 15.9 H (12.0-15.0) % Plt Count 228 (130-450) 10^3/uL MPV 8.8 (7.4-11.4) fL Neut # (Auto) 4.6 (1.5-6.6) 10^3/uL Lymph # (Auto) 1.3 L (1.5-3.5) 10^3/uL [place] # (Auto) 0.5 (0.0-1.0) 10^3/uL Eos # (Auto) 0.1 (0.0-0.7) 10^3/uL Baso # (Auto) 0.0 (0.0-0.1) 10^3/uL Absolute Nucleated RBC 0.00 x10^3/uL Nucleated RBC % 0.0 /100WBC PT (9.9-12.6) secs INR (0.8-1.2) Sodium 138 (135-145) mmol/L Potassium 3.7 (3.5-5.0) mmol/L Chloride 101 (101-111) mmol/L Carbon Dioxide 29 (21-32) mmol/L Anion Gap 8.0 (6-13) BUN 15 (6-20) mg/dL Creatinine 1.2 (0.6-1.2) mg/dL Estimated GFR (MDRD) 69 L (>89) Glucose 129 H (70-100) mg/dL Calcium 8.3 L (8.5-10.3) mg/dL Magnesium (1.7-2.8) mg/dL Troponin I High Sens 118.1 H* (2.3-19.7) pg/mL B-Natriuretic Peptide (5-100) pg/mL ABX Reporting Has patient been on IV antibiotics over the past 48 hours?: No Assessment/Plan - Problem List (1) Acute on chronic HFrEF (heart failure with reduced ejection fraction) Impression: His weight is down nearly 7kg but he continues to significant lower extremity edema. BNP increased today to >2000. His urine output is excellent as he is negative 9.1L. Will continue diurese with Lasix IV twice day. Continue Carvedilol and Lisinopril. Continue fluid restriction and low sodium diet. (2) Dilated cardiomyopathy Impression: We are still awaiting to obtain his outside records regarding his cardiomyopathy. An Echo has been ordered and will be obtained today. (3) Urinary retention with incomplete bladder emptying Impression: His PVR's yesterday were >1L and his bladder is markedly distended on imaging. Fortunately there is no hydronephrosis on imaging. A baumann catheter was unable to be placed yesterday despite multiple attempts by different providers. As he is still able to urinate when prompted, will not transfer him at this for a Urologic evaluation. Will continue bladder scan every 4 hours and will continue to prompt him to urinate. (4) Elevated troponin Impression: His troponins peaked in the 120's and he continues to report no chest pain. Likely demand ischemia given his heart failure. (5) Elevated INR Impression: His INR continues to rise to 1.5. His liver appeared normal on ultrasound and the mild ascites is likely related to heart failure. Suspect this is congestive hepatopathy given his heart failure and edema. Continue to trend INR and monitor for bleeding. (6) Schizophrenia Impression: Stable. Continue Olanzapine, Risperidone, and Xanax PRN. Qualifiers: Schizophrenia type: unspecified Qualified Code(s): F20.9 - Schizophrenia, unspecified
[2019-04-08] MEDS: ENOXAPARIN 40 MG/0.4 ML SYRINGE SUBQ SCH (09:09)
[2019-04-08] MEDS: TAMSULOSIN 0.4 MG CAPSULE PO SCH (09:09)
[2019-04-08] MEDS: OLANZapine ODT 5 MG TABLET TL SCH (09:09)
[2019-04-08] MEDS: LISINOPRIL 5 MG TABLET PO SCH (09:09)
[2019-04-08] MEDS: POLYETHYLENE GLYCOL 3350 17 GM PACKET PO SCH (09:09)
[2019-04-08] MEDS: CARVEDILOL 3.125 MG TABLET PO SCH ×2 (09:09→20:40)
[2019-04-08] MEDS ORDERED: MORPHINE 2 MG/ML CARPUJECT IVP STA ×2 (10:33→11:21)
[2019-04-08] MEDS ORDERED: LIDOCAINE 2% URO-JET 5 ML SYRINGE UR ONE (10:37)
[2019-04-08] MEDS ORDERED: MORPHINE 2 MG/ML CARPUJECT ONE (11:31)
[2019-04-08] MEDS: risperiDONE 1 MG TABLET PO SCH (20:41)
[2019-04-09] MEDS: SODIUM CHLORIDE FLUSH 0.9% 10 ML SYRINGE IVP SCH ×3 (03:39→20:34)
[2019-04-09] MEDS: ALPRAZolam 0.25 MG TABLET PO PRN (03:48)
[2019-04-09] MEDS: SODIUM CHLORIDE FLUSH 0.9% 10 ML SYRINGE IVP PRN ×2 (05:45→14:10)
[2019-04-09] MEDS: FUROSEMIDE 40 MG/4 ML VIAL IVP SCH ×2 (05:45→14:08)
[2019-04-09] MEDS: CARVEDILOL 3.125 MG TABLET PO SCH ×3 (06:19→20:35)
[2019-04-09] MEDS: OLANZapine ODT 5 MG TABLET TL SCH (08:31)
[2019-04-09] MEDS: POLYETHYLENE GLYCOL 3350 17 GM PACKET PO SCH (08:31)
[2019-04-09] MEDS: TAMSULOSIN 0.4 MG CAPSULE PO SCH (08:31)
[2019-04-09] MEDS: LISINOPRIL 5 MG TABLET PO SCH (08:31)
[2019-04-09] MEDS: ENOXAPARIN 40 MG/0.4 ML SYRINGE SUBQ SCH (08:31)
--- NOTE | 2019-04-09 11:13 | PROVIDER PROGRESS NOTE ---
Assessment/Plan - Problem List (1) Acute on chronic HFrEF (heart failure with reduced ejection fraction) Assessment/Plan: He is having very good urine output and neg fluid balance. Weight is down 9 kg since admission. Continue with the resumed cardiac meds, low salt diet, follow I's and O's and daily weights. (2) Dilated cardiomyopathy Assessment/Plan: He was Dx with this possibly last year. Apparently, his EF improved from 15% to 40% on meds, in the past. More recently, his meds were discontinued by him, unknown time ago. The Echo done this admission again shows LV dilation and EF 15%. Meds resumed (3) Noncompliance with immunization regimen Assessment/Plan: Noncompliance to hs CHF meds was reported by his mother at admission. (4) Elevated INR Assessment/Plan: He reused his a.m. blood draw today, so no INR to re-eval. It was likely elevated due to passive liver congestion. Continue plan for diuresis. Check INR gsin when he agrees. (5) Urinary retention with incomplete bladder emptying Assessment/Plan: Th records from [facility] from 03/06, described a similar presentation and the urinary retention was felt to be due to leg and scrotal edema. He does urinate here. Continue to monitor I's and O's. (6) Schizophrenia Qualifiers: Schizophrenia type: unspecified Qualified Code(s): F20.9 - Schizophrenia, unspecified Assessment/Plan: he apparently was taking his psych meds from [place]. They are continued while here. He is pacing in room this a.m. despite getting a sedative about 4 hours earlier. (7) Hypokalemia Assessment/Plan: Related to aggressive diuresis. Replace K and follow labs. - Current Meds Current Meds: Current Medications Generic Name Dose Route Start Last Admin Trade Name Freq PRN Reason Stop Dose Admin Alprazolam 0.5 mg 04/07/19 14:52 04/09/19 03:48 Xanax PO 0.5 mg BID PRN Administration Anxiety Carvedilol 6.25 mg 04/09/19 09:00 04/09/19 08:50 Coreg PO 3.125 mg BID RADHA Administration Enoxaparin Sodium 40 mg 04/07/19 09:00 04/09/19 08:31 Lovenox SUBQ 40 mg DAILY RADHA Administration Furosemide 40 mg 04/07/19 17:00 04/09/19 05:45 Lasix Inj 40 Mg Vial IVP 40 mg BIDDIURETIC RADHA Administration Lisinopril 10 mg 04/09/19 09:00 04/09/19 08:31 Zestril PO 10 mg DAILY RADHA Administration Olanzapine 10 mg 04/08/19 09:00 04/09/19 08:31 Zyprexa Odt TL 10 mg DAILY RADHA Administration Oxycodone HCl 5 mg 04/07/19 06:42 04/08/19 01:43 Roxicodone PO 5 mg Q4HR PRN Administration Pain 5 to 7 Polyethylene Glycol 17 gm 04/07/19 09:00 04/09/19 08:31 Miralax PO Not Given DAILY RADHA Risperidone 2 mg 04/07/19 21:00 04/08/19 20:41 Risperdal PO 2 mg QPM RADHA Administration Sodium Chloride 10 ml 04/07/19 06:42 04/09/19 05:45 Normal Saline Flush 0.9% IVP 10 ml PRN PRN Administration NEEDED PER PROVIDER ORDERS Sodium Chloride 10 ml 04/07/19 09:00 04/09/19 08:32 Normal Saline Flush 0.9% IVP 10 ml 0100,0900,1700 RADHA Administration Tamsulosin HCl 0.4 mg 04/08/19 09:00 04/09/19 08:31 Flomax PO 0.4 mg DAILY RADHA Administration - Lab Result Fish Bone Diagrams: 04/08/19 04:56 04/08/19 04:56 - Additional Planning My Orders: My Active Orders 04/09/19 09:00 Carvedilol [Coreg] 6.25 mg PO BID Lisinopril [Zestril] 10 mg PO DAILY Subjective - Subjective Patient Reports: Resting Comfortably Objective Vital Signs: Vital Signs - 24 hr 04/08/19 04/08/19 04/08/19 12:17 15:30 20:21 Temperature 37.1 C 36.7 C 36.5 C Heart Rate [ 93 92 Brachial] Heart Rate [ 103 H Radial] Respiratory 18 24 24 Rate Blood Pressure 130/95 H [Left Brachial artery] Blood Pressure 100/75 [Left] Blood Pressure 131/97 H [Right Brachial artery] O2 Saturation 100 99 99 04/09/19 04/09/19 04/09/19 03:43 06:06 06:13 Temperature 35.8 C L 35.7 C L Heart Rate [ 98 77 Brachial] Heart Rate [ Radial] Respiratory 16 16 Rate Blood Pressure [Left Brachial artery] Blood Pressure [Left] Blood Pressure 139/114 H 148/114 H 140/110 H [Right Brachial artery] O2 Saturation 97 94 04/09/19 08:08 Temperature 36.3 C L Heart Rate [ 92 Brachial] Heart Rate [ Radial] Respiratory 18 Rate Blood Pressure [Left Brachial artery] Blood Pressure [Left] Blood Pressure 128/98 H [Right Brachial artery] O2 Saturation 100 Oxygen O2 Source Room air I&O (Last 24 Hrs): Intake and Output Totals x24h 04/07/19 04/08/19 04/09/19 23:59 23:59 23:59 Intake Total 1220 1150 240 Output Total 21743 8925 1500 Balance -9179 -7611 -1260 General: Other (Sleeping supine, awoke and was in no distress) HEENT: Mucous membr. moist/pink, Other (Skin leathery and tanned) Cardiovascular: Regular rate, No murmurs Respiratory: No respiratory distress Abdomen: Soft Extremities: Other (1+ edema) - Results Results: Laboratory Results WBC 6.5 x10^3/uL (4.8-10.8) 04/08/19 04:56 RBC 5.23 10^6/uL (4.70-6.10) 04/08/19 04:56 Hgb 13.2 g/dL (14.0-18.0) L 04/08/19 04:56 Hct 43.3 % (42.0-52.0) 04/08/19 04:56 MCV 82.8 fL (80.0-94.0) 04/08/19 04:56 MCH 25.2 pg (27.0-31.0) L 04/08/19 04:56 MCHC 30.5 g/dL (32.0-36.0) L 04/08/19 04:56 RDW 15.9 % (12.0-15.0) H 04/08/19 04:56 Plt Count 228 10^3/uL (130-450) 04/08/19 04:56 MPV 8.8 fL (7.4-11.4) 04/08/19 04:56 Neut # (Auto) 4.6 10^3/uL (1.5-6.6) 04/08/19 04:56 Lymph # (Auto) 1.3 10^3/uL (1.5-3.5) L 04/08/19 04:[address] [place] # (Auto) 0.5 10^3/uL (0.0-1.0) 04/08/19 04:56 Eos # (Auto) 0.1 10^3/uL (0.0-0.7) 04/08/19 04:56 Baso # (Auto) 0.0 10^3/uL (0.0-0.1) 04/08/19 04:56 Absolute Nucleated RBC 0.00 x10^3/uL 04/08/19 04:56 Nucleated RBC % 0.0 /100WBC 04/08/19 04:56 PT 17.5 secs (9.9-12.6) H 04/08/19 04:56 INR 1.6 (0.8-1.2) H 04/08/19 04:56 Sodium 139 mmol/L (135-145) 04/08/19 04:56 Potassium 3.4 mmol/L (3.5-5.0) L 04/08/19 04:56 Chloride 102 mmol/L (101-111) 04/08/19 04:56 Carbon Dioxide 26 mmol/L (21-32) 04/08/19 04:56 Anion Gap 11.0 (6-13) 04/08/19 04:56 BUN 17 mg/dL (6-20) 04/08/19 04:56 Creatinine 1.2 mg/dL (0.6-1.2) 04/08/19 04:56 Estimated GFR (MDRD) 69 (>89) L 04/08/19 04:56 Glucose 123 mg/dL (70-100) H 04/08/19 04:56 Calcium 8.3 mg/dL (8.5-10.3) L 04/08/19 04:56 Magnesium 1.9 mg/dL (1.7-2.8) 04/08/19 04:56 Total Bilirubin 2.1 mg/dL (0.2-1.0) H 04/07/19 03:30 AST 21 IU/L (10-42) 04/07/19 03:30 ALT 23 IU/L (10-60) 04/07/19 03:30 Alkaline Phosphatase 179 IU/L (42-121) H 04/07/19 03:30 Troponin I High Sens 118.1 pg/mL (2.3-19.7) H* 04/07/19 12:05 B-Natriuretic Peptide 2014 pg/mL (5-100) H 04/08/19 04:56 Total Protein 6.3 g/dL (6.7-8.2) L 04/07/19 03:30 Albumin 3.0 g/dL (3.2-5.5) L 04/07/19 03:30 Globulin 3.3 g/dL (2.1-4.2) 04/07/19 03:30 Albumin/Globulin Ratio 0.9 (1.0-2.2) L 04/07/19 03:30 Lipase 26 U/L (22-51) 04/07/19 03:30 TSH 2.90 uIU/mL (0.34-5.60) 04/07/19 03:30 Urine Color YELLOW 04/07/19 03:18 Urine Clarity CLEAR (CLEAR) 04/07/19 03:18 Urine pH 7.0 PH (5.0-7.5) 04/07/19 03:18 Ur Specific [place] <=1.005 (1.002-1.030) 04/07/19 03:18 Urine Protein 100 mg/dL (NEGATIVE) H 04/07/19 03:18 Urine Glucose (UA) NEGATIVE mg/dL (NEGATIVE) 04/07/19 03:18 Urine Ketones NEGATIVE mg/dL (NEGATIVE) 04/07/19 03:18 Urine Occult Blood NEGATIVE (NEGATIVE) 04/07/19 03:18 Urine Nitrite NEGATIVE (NEGATIVE) 04/07/19 03:18 Urine Bilirubin NEGATIVE (NEGATIVE) 04/07/19 03:18 Urine Urobilinogen 2 E.U./dL (NORMAL) H 04/07/19 03:18 Ur Leukocyte Esterase NEGATIVE (NEGATIVE) 04/07/19 03:18 Urine RBC None Seen /HPF (0-5) 04/07/19 03:18 Urine WBC 0-3 /HPF (0-3) 04/07/19 03:18 Ur Squamous Epith Cells NONE SEEN (<= Few) 04/07/19 03:18 Urine Bacteria None Seen /HPF (None Seen) 04/07/19 03:18 Urine Mucus Marked Strands 04/07/19 03:18 Ur Microscopic Review INDICATED 04/07/19 03:18 Urine Culture Comments NOT INDICATED 04/07/19 03:18 Salicylates < 6.0 mg/dL 04/07/19 03:30 Urine Opiates Screen NEGATIVE (NEGATIVE) 04/07/19 03:18 Ur Oxycodone Screen NEGATIVE (NEGATIVE) 04/07/19 03:18 Urine Methadone Screen NEGATIVE (NEGATIVE) 04/07/19 03:18 Ur Propoxyphene Screen NEGATIVE (NEGATIVE) 04/07/19 03:18 Acetaminophen < 10 ug/mL (10-30) L 04/07/19 03:30 Ur Barbiturates Screen NEGATIVE (NEGATIVE) 04/07/19 03:18 Ur Tricyclics Screen NEGATIVE (NEGATIVE) 04/07/19 03:18 Ur Phencyclidine Scrn NEGATIVE (NEGATIVE) 04/07/19 03:18 Ur Amphetamine Screen NEGATIVE (NEGATIVE) 04/07/19 03:18 U Methamphetamines Scrn NEGATIVE (NEGATIVE) 04/07/19 03:18 U Benzodiazepines Scrn POSITIVE (NEGATIVE) H 04/07/19 03:18 Urine Cocaine Screen NEGATIVE (NEGATIVE) 04/07/19 03:18 U Cannabinoids Screen NEGATIVE (NEGATIVE) 04/07/19 03:18 Ethyl Alcohol < 5.0 mg/dL 04/07/19 03:30
[2019-04-09] MEDS: risperiDONE 1 MG TABLET PO SCH (20:34)
[2019-04-10] MEDS: FUROSEMIDE 40 MG/4 ML VIAL IVP SCH ×2 (06:07→12:09)
[2019-04-10] MEDS: SODIUM CHLORIDE FLUSH 0.9% 10 ML SYRINGE IVP PRN (06:11)
[2019-04-10] MEDS: SODIUM CHLORIDE FLUSH 0.9% 10 ML SYRINGE IVP SCH ×3 (06:17→18:23)
[2019-04-10] MEDS: ALPRAZolam 0.25 MG TABLET PO PRN (06:33)
[2019-04-10] MEDS: LISINOPRIL 5 MG TABLET PO SCH (08:12)
[2019-04-10] MEDS: OLANZapine ODT 5 MG TABLET TL SCH (08:12)
[2019-04-10] MEDS: CARVEDILOL 3.125 MG TABLET PO SCH (08:13)
[2019-04-10] MEDS: TAMSULOSIN 0.4 MG CAPSULE PO SCH (08:14)
--- NOTE | 2019-04-10 08:47 | Discharge Plan ---
Discharge Plan Problem Reviewed?: Yes Disposition: Home, Self Care Condition: Stable Prescriptions: Carvedilol 6.25 mg PO BID #60 tablet Furosemide [Lasix] 20 mg PO DAILY #30 tablet Lisinopril [Zestril] 10 mg PO DAILY #30 tablet Spironolactone 25 mg PO DAILY #30 tablet Tamsulosin [Flomax] 0.4 mg PO DAILY #30 capsule Diet: Low Sodium Activity Restrictions: Activity as Tolerated Shower Restrictions: No Instruction Topics: Heart Failure Meds Control Health Concerns: Admitted with fluid overload from not taking heart medications for your weak heart. Plan of Treatment: Restart the heart medications and continue your psychiatric medications. Care Goals: Stabilize and improve heart function. Assessment: This was communicated to the patient and mother, using a draw bench operator. Additional Instructions or Follow Up instructions: See your doctor in 1-2 weeks in follow-up and to get refills of all your medicines. No Smoking: If you smoke, Please STOP! Call for help. Follow-up with: Emerson Bai MD [Provider Admit Priv/Credential] -
[2019-04-10] MEDS: ENOXAPARIN 40 MG/0.4 ML SYRINGE SUBQ SCH (10:38)
[2019-04-10] MEDS: POLYETHYLENE GLYCOL 3350 17 GM PACKET PO SCH (12:09)
[2019-04-10 18:11] VITALS: BP 133/87
--- NOTE | 2019-04-10 18:46 | DISCHARGE SUMMARY ---
Discharge Summary Admit Date: 04/07/19 Discharge Date: 04/10/19 Discharging Provider: Dr Veronica Barbour Code Status: Attempt Resuscitation Condition at Discharge: Stable Discharge Disposition: 01 Home, Self Care - DIAGNOSES Admission Diagnoses: (1) Acute on chronic HFrEF (heart failure with reduced ejection fraction) (2) Dilated cardiomyopathy (3) Elevated troponin (4) Elevated INR (5) Schizophrenia Discharge Diagnoses with Status of Each Condition: See below - HPI History of Present Illness: From the admission H&P of Dr Royal Alvarenga: This is a 34 year old German male with a past medical history significant for schizophrenia and dilated cardiomyopathy who presents from home after his mother was concerned that his lower extremities were becoming more swollen and edematous. Most of the history is obtained from the mother as the patient gives short answers which mostly consist of yes and no. His mother tells me his swelling has been going on for one year. He was hospitalized last year at [facility] for what appears to be heart failure. She states he has not been taking any of his cardiac medications. He has been taking his medications for schizophrenia which they got from [place]. He does not see any physicians here as he refuses to follow up. His mother tells me that he was in [place] earlier this year and just returned to the area this month. He has been taking Olanzapine 10mg, Risperidone 2mg, and Xanax 0.5mg. The patient reports no chest pain, shortness of breath. He denies that his legs are painful but does endorse swelling. In the emergency department, he was tachycardic in the 100's but saturating 100% on room air. Labs revealed a sodium of 134, BNP of 1436, and troponin of 120.8. Given his significant anasarca,the Hospitalist team was consulted for admission. - HOSPITAL COURSE Hospital Course: 1) Acute on chronic HFrEF (heart failure with reduced ejection fraction) He was put back on his CHF meds, including iv bid diuretics. He had very good urine output and neg fluid balance with his weight down 10 kg from admission and complete resolution of leg edema. He was discharged with new prescriptions for Coreg, Lasix, Lisinopril, and Spironolactone. (2) Dilated cardiomyopathy He was diagnosed with this possibly last year, but we got no records regarding an angio result or other work-up. Apparently, his EF improved from 15% to 40% on meds, in the past. An Echo done this admission again showed LV dilation and LV EF 15%. There was also mild tricuspid regurgitation and moderate mitral regurgitation and mild pulmonary HTN with PA pressure 41 mmHg. The hs-troponins were elevated (120, 125, 118) but "flat" indicating no acute coronary syndrome. (3) Noncompliance with medications Noncompliance to his CHF meds was reported by his mother at admission. At discharge, through an fowl blood tester, he said he would comply with taking his heart medications. (4) Elevated INR His INR was 1.5, and the next day 1.6. This was likely elevated due to passive liver congestion, but the LFTs were normal. He refused further blood draws after the first 2 days, for any follow-up results after diuresis. (5) Urinary retention with incomplete bladder emptying The records from [facility] from Feb 2018, described a similar presentation and the urinary retention was felt to be due to leg and scrotal edema. Here he could urinate. He was sent home with a new prescription for Flomax daily. (6) Schizophrenia He apparently had been taking his psych meds from [place]. They were continued while here. He would often pace in room but had no signs of break from reality. (7) Hypokalemia This was related to aggressive diuresis. It was replaced and labs followed. - ALLERGIES Allergies/Adverse Reactions: Allergies Allergy/AdvReac Type Severity Reaction Status Date / Time No Known Drug Allergies Allergy Verified 02/20/18 00:07 - MEDICATIONS Home Medications: Ambulatory Orders Medication Instructions Recorded Confirmed OLANZapine [Olanzapine] 10 mg PO DAILY #7 tablet 11/29/17 Risperidone [Risperdal] 2 mg PO DAILY #7 tablet 11/29/17 ALPRAZolam [Alprazolam] 0.5 mg PO 04/07/19 04/07/19 Carvedilol 6.25 mg PO BID #60 tablet 04/10/19 Furosemide [Lasix] 20 mg PO DAILY #30 tablet 04/10/19 Lisinopril [Zestril] 10 mg PO DAILY #30 tablet 04/10/19 Spironolactone 25 mg PO DAILY #30 tablet 04/10/19 Tamsulosin [Flomax] 0.4 mg PO DAILY #30 capsule 04/10/19 - PHYSICAL EXAM AT DISCHARGE General Appearance: positive: No acute distress Eyes Bilateral: positive: Normal inspection, PERRL ENT: positive: ENT inspection nml Neck: positive: Nml inspection, No JVD Respiratory: positive: No respiratory distress, Breath sounds nml Cardiovascular: positive: Regular rate & rhythm, No murmur Abdomen: positive: No distention Extremities: positive: No pedal edema Neurologic/Psychiatric: positive: Other (Unable to assess due to language barrier (only speeks German)) - LABS Result Diagrams: 04/08/19 04:56 04/08/19 04:56 - DIAGNOSTIC IMAGING Diagnostic Imaging Results: Final report reviewed - FOLLOW UP Follow Up: See PCP in 1-2 weeks in hospital F/U and for med refills - TIME SPENT Time Spent in Discharge (Minutes): 30
== END 2019-04-10 20:45 | disposition home or self-care (01) | DRG 292 ==
LOC: EDUNIT# → ED 02:55 → MS2 06:42
PROVIDERS: ADMIT Internal Medicine; ATTEND Internal Medicine
DX: I50.23 Acute on chronic systolic (congestive) heart failure (principal); I42.0 Dilated cardiomyopathy; R18.8 Other ascites; T44.7X6A Underdosing of beta-adrenoreceptor antagonists, initial encounter; T50.1X6A Underdosing of loop [high-ceiling] diuretics, initial encounter; T46.4X6A Underdosing of angiotensin-converting-enzyme inhibitors, initial encounter; Z91.128 Patient's intentional underdosing of medication regimen for other reason; Y92.009 Unspecified place in unspecified non-institutional (private) residence as the place of occurrence of the external cause; F20.9 Schizophrenia, unspecified; R63.1 Polydipsia; F17.200 Nicotine dependence, unspecified, uncomplicated; I08.1 Rheumatic disorders of both mitral and tricuspid valves; I27.20 Pulmonary hypertension, unspecified; K76.1 Chronic passive congestion of liver; R33.8 Other retention of urine; E87.6 Hypokalemia; T50.1X5A Adverse effect of loop [high-ceiling] diuretics, initial encounter; Y92.230 Patient room in hospital as the place of occurrence of the external cause; Z79.899 Other long term (current) drug therapy; Z82.49 Family history of ischemic heart disease and other diseases of the circulatory system
CPT/HCPCS: 36415; 71045; 76705; 76770; 80048; 80053; 80306; 80307; 80320; 80329; 81001; 83690; 83735; 83880; 84443; 84484; 85025; 85610; 93005; 93306; 96374; 99284; 99285; A9270; J1650; 81003; 87086

== ENCOUNTER 2019-07-07 20:14 | Outpatient (CLI) | payer MEDICAID | END 2019-07-07 20:15 | disposition critical access hospital (66) | LOC: EMS 20:14 | PROVIDERS: ATTEND Surgery | DX: S71.141A Puncture wound with foreign body, right thigh, initial encounter (principal); S31.140A Puncture wound of abdominal wall with foreign body, right upper quadrant without penetration into peritoneal cavity, initial encounter; Y35.833A Legal intervention involving a conducted energy device, suspect injured, initial encounter ==

== ENCOUNTER 2019-07-26 10:56 | Inpatient (IN) | payer MEDICAID ==
--- NOTE | 2019-07-26 11:56 | XRAY Report ---
Reason: dyspnea Procedure Date: 07/26/2019 Accession Number: [id number] / [id number] Procedure: XR - Chest 2 View X-Ray CPT Code: 42562 Final Report FULL RESULT: EXAM: CHEST RADIOGRAPHY 2 VIEWS EXAM DATE: 07/26/2019. CLINICAL HISTORY: Dyspnea. COMPARISON: AP portable chest done 04/07/2019. TECHNIQUE: PA and lateral views. FINDINGS: Lungs/Pleura: Lungs are hypoinflated. Vasculature is normal. No consolidation or mass. No pleural fluid or pneumothorax. Mediastinum: Cardiac and mediastinal contours are normal for the technique and the high position of the diaphragms. Bones: Normal. IMPRESSION: Allowing for hypoventilation, normal examination. RADIA
--- NOTE | 2019-07-26 12:06 | ED Physician Documentation ---
PD HPI DYSPNEA - Stated complaint Stated Complaint: SOA/ V - Chief complaint Chief Complaint: Resp - History obtained from History obtained from: Patient, Police - History of Present Illness Timing - onset: Other (This is a very schizophrenic 34-year-old gentleman who presents from [facility] for concerns of shortness of breath, vomiting, and potentially drinking too much water. History is somewhat limited because he is quite schizophrenic and somewhat delayed because of that and also there is a language barrier although we were using the Nepali sera, retail stock clerk to help, but despite that he is unable to give much history. Review of the chart shows that he has a history of dilated cardiomyopathy with a destinee EF of 15% which is being medically managed. Currently in the [place] [facility] he is on Risperdal, lisinopril, olanzapine, and spironolactone. He has been in the [place] [facility] for a few weeks I guess. The patient is unable to really give me any specific complaints. When he was discharged from here last March he was supposed to be on Lasix as well and the dose of lisinopril was higher. He was also on Coreg at a dose of 6.25 mg twice daily. The lisinopril was at 10 mg. Lasix was at 20 mg a day. Spironolactone was at the same dose, 25 mg a day. It is not clear why he is not on the higher dose of lisinopril, and no longer on the Coreg or Lasix.) Review of Systems Unable to obtain: Confused PD PAST MEDICAL HISTORY - Past Medical History Cardiovascular: Congestive heart failure, Other Neuro: Headaches : Other Psych: Schizophrenia Derm: Other - Past Surgical History Past Surgical History: No - Present Medications Home Medications: Ambulatory Orders Medication Instructions Recorded Confirmed OLANZapine [Olanzapine] 10 mg PO DAILY #7 tablet 11/29/17 Risperidone [Risperdal] 2 mg PO DAILY #7 tablet 11/29/17 ALPRAZolam [Alprazolam] 0.5 mg PO 04/07/19 04/07/19 Furosemide [Lasix] 20 mg PO DAILY #30 tablet 04/10/19 Spironolactone 25 mg PO DAILY #30 tablet 04/10/19 Tamsulosin [Flomax] 0.4 mg PO DAILY #30 capsule 04/10/19 carvediloL [Carvedilol] 6.25 mg PO BID #60 tablet 04/10/19 lisinopriL [Zestril] 10 mg PO DAILY #30 tablet 04/10/19 - Allergies Allergies/Adverse Reactions: Allergies Allergy/AdvReac Type Severity Reaction Status Date / Time No Known Drug Allergies Allergy Verified 02/20/18 00:07 - Social History Does the pt smoke?: Yes Smoking Status: Current every day smoker Does the pt drink ETOH?: No Does the pt have substance abuse?: No - Immunizations Immunizations are current?: No - POLST Patient has POLST: No PD ED PE NORMAL - Vitals Vital signs reviewed: Yes - General General: Other (He is alert and follows simple commands. He can say his name. Otherwise he is in unhelped he does not seem to understand what is going on.) - HEENT HEENT: PERRL, EOMI - Neck Neck: Supple, no meningeal sign, No bony TTP - Cardiac Cardiac: RRR, No murmur - Respiratory Respiratory: No respiratory distress, Clear bilaterally - Abdomen Abdomen: Non tender - Back Back: No CVA TTP, No spinal TTP - Extremities Extremities: Other (Minimal bilateral lower extremity pedal edema, pitting, symmetric) - Neuro Neuro: No motor deficit, No sensory deficit Results - Vitals Vitals: Vital Signs - 24 hr 07/26/19 11:02 Heart Rate 110 H Respiratory 20 Rate Blood Pressure 156/109 H O2 Saturation 100 Oxygen O2 Source Room air - Labs Labs: Laboratory Tests 07/26/19 07/26/19 07/26/19 12:05 12:05 12:05 WBC 9.7 RBC 4.18 L Hgb 12.1 L Hct 33.2 L MCV 79.4 L MCH 28.9 MCHC 36.4 H RDW 13.5 Plt Count 182 MPV 8.1 Neut # (Auto) 7.1 H Lymph # (Auto) 1.8 [place] # (Auto) 0.6 Eos # (Auto) 0.1 Baso # (Auto) 0.0 Absolute Nucleated RBC 0.00 Nucleated RBC % 0.0 Sodium 115 L* Potassium 3.7 Chloride 79 L* Carbon Dioxide 23 Anion Gap 13.0 BUN 8 Creatinine 0.7 Estimated GFR (MDRD) 129 Glucose 90 Calcium 8.9 Phosphorus 2.5 Magnesium 1.7 Total Bilirubin 1.4 H AST 25 ALT 30 Alkaline Phosphatase 131 H B-Natriuretic Peptide 31 Total Protein 8.3 H Albumin 4.6 Globulin 3.7 Albumin/Globulin Ratio 1.2 Lipase 32 PD MEDICAL DECISION MAKING - ED course ED course: 34-year-old gentleman presents from [facility] with concern for psychogenic polydipsia and potentially heart failure. There is really no evidence of heart failure other than trace pedal edema but he certainly does have evidence of psychogenic polydipsia with a sodium of 115 which is acute. I had left a message for the [facility] nurse practitioner, Ms. Crowder to call me on her cell phone. She did not call back by the time the decision to admit was made. Is not clear why he is off of his Lasix and the other medications were changed as far as the dosing and he is off the Coreg. Spoke with Dr. SARAH for admission at 12:43 PM. Departure - Departure Disposition: 66 [facility] DC/[facility] Clinical Impression: Hyponatremia, Psychogenic polydipsia Condition: Stable
[2019-07-26 12:14] LABS: BASOPHILS % (AUTO) 0.2 %; EOSINOPHILS # (AUTO) 0.1 10^3/uL (0.0-0.7); EOSINOPHILS % (AUTO) 0.6 %; HGB - HEMOGLOBIN 12.1 g/dL (14.0-18.0); LYMPHOCYTES # (AUTO) 1.8 10^3/uL (1.5-3.5); LYMPHOCYTES % (AUTO) 18.8 %; MEAN CORPUSCULAR HEMOGLOBIN 28.9 pg (27.0-31.0); MEAN CORPUSCULAR HGB CONC 36.4 g/dL (32.0-36.0); MEAN CORPUSCULAR VOLUME 79.4 fL (80.0-94.0); MEAN PLATELET VOLUME 8.1 fL (7.4-11.4); MONOCYTES # (AUTO) 0.6 10^3/uL (0.0-1.0); MONOCYTES % (AUTO) 6.5 %; NEUTROPHILS # (AUTO) 7.1 10^3/uL (1.5-6.6); NEUTROPHILS % (AUTO) 73.5 %; PLT - PLATELET COUNT 182 10^3/uL (130-450); RED BLOOD COUNT 4.18 10^6/uL (4.70-6.10); RED CELL DISTRIBUTION WIDTH 13.5 % (12.0-15.0); WHITE BLOOD COUNT 9.7 x10^3/uL (4.8-10.8)
[2019-07-26 12:33] LABS: ALBUMIN 4.6 g/dL (3.2-5.5); ALBUMIN/GLOBULIN RATIO 1.2 (1.0-2.2); BILIRUBIN,TOTAL 1.4 mg/dL (0.2-1.0); CALCIUM 8.9 mg/dL (8.5-10.3); CREATININE 0.7 mg/dL (0.6-1.2); MAGNESIUM 1.7 mg/dL (1.7-2.8); PHOSPHORUS 2.5 mg/dL (2.5-4.6); TOTAL PROTEIN 8.3 g/dL (6.7-8.2)
[2019-07-26] MEDS ORDERED: SODIUM CHLORIDE FLUSH 0.9% 10 ML SYRINGE IVP PRN (12:52)
[2019-07-26] MEDS ORDERED: HALOPERIDOL 5 MG/ML VIAL IM ONE (13:32)
[2019-07-26] MEDS ORDERED: LIDOCAINE 2% URO-JET 5 ML SYRINGE UR PRN (14:18)
--- NOTE | 2019-07-26 14:34 | HISTORY & PHYSICAL EXAMINATION ---
Chief Complaint - Chief Complaint Chief Complaint: shortness of breath, vomiting History of Present Illness - Admitted From Admitted From:: ED - History Obtained From Records Reviewed: yes History obtained from: chart review, detention staff Exam Limitations: AMS, psych hx - History of Present Illness HPI Comment/Other: Juany Nance is a 34-year old Greek male with a prominent past medical history of schizophrenia, heart failure with reduced ejection fraction, dilated cardiomyopathy, hypertension, and urinary retention. The patient was brought in via police in all extremity hand cuffs detention for concerns of shortness of breath, vomiting, and reports of excessive water consumption. No history is able to be obtained from the patient due to his acute confusion, schizophrenia (even with the assistance of a Greek sera, box annealer). Labs show Hgb 12.1, Hct 33.2, MCV 79.4, Neut # 7.1, sodium 115, potassium 3.7, chloride 79, total bilirubin 4.1, alk phos 131, BNP 31, total protein 8.3, urine was not collected. The pat ieana remains in custody and has hand cuffs on ALL 4 extremities with 2 officers present in the room. He cannot contribute to his review of systems exam questions (box annealer services), but denies chest pain, nausea, headaches, falls, or bleeding when asked. He will be admitted to inpatient for intensive IV diuresis, every 6 hour electrolyte panel and close monitoring for seizures or worsening mentation. History - Past Medical History Cardiovascular: reports: Congestive heart failure, Hypertension, Peripheral Vascular Disease, Murmur, Other Respiratory: reports: None Neuro: reports: Headaches, Peripheral neuropathy, Tremors Endocrine/Autoimmune: reports: None GI: reports: None MANAGER INTERNET: reports: None : reports: Retention, Nocturia, Frequency HEENT: reports: None Psych: reports: Schizophrenia Musculoskeletal: reports: Fatigue Derm: reports: None MRSA Hx?: No - Family & Social History Family History: Mother: Alive and Well Family History Comment/Other: His mother reports that his grandmother had cardiac problems and required a "heart replacement." One of the patient's step sisters also has cardiac problems but she is unsure what they are. Reports no other family history. Living arrangement: Long Term Social History Notes: He currently does not work. He has been back in forth from [place] and [facility]. He just returned from [facility] one month ago. His mother reports that he smokes but does not drink alcohol. - Substance History Use: Uses substance without health or social issues: NONE Abuse: Recurrent use of substance despite neg consequences: NONE Dependence: Experiences withdrawal or developed tolerances: NONE - POLST Patient has POLST: No POLST Status: Full Code Meds/Allgy - Home Medications Home Medications: Ambulatory Orders Medication Instructions Recorded Confirmed OLANZapine [Olanzapine] 10 mg PO DAILY #7 tablet 11/29/17 07/26/19 Risperidone [Risperdal] 2 mg PO DAILY #7 tablet 11/29/17 07/26/19 Spironolactone 25 mg PO DAILY #30 tablet 04/10/19 07/26/19 lisinopriL [Zestril] 5 mg PO DAILY 07/26/19 07/26/19 - Allergies Allergies/Adverse Reactions: Allergies Allergy/AdvReac Type Severity Reaction Status Date / Time No Known Drug Allergies Allergy Verified 02/20/18 00:07 Review of Systems - Constitutional Constitutional: reports: Fatigue, Malaise, Weakness, Weight gain - Ears, Nose & Throat Ears, Nose & Throat: reports: Postnasal drainage - Cardiovascular Cariovascular: reports: Exertional dyspnea, Decr. exercise tolerance, Orthopnea - Respiratory Respiratory: reports: Cough, Orthopnea, SOB at rest, SOB with exertion - Gastrointestinal Gastrointestinal: reports: Abdominal distention, Change in bowel habits, Nausea, Reflux/heartburn, Bloating, Poor appetite - Genitourinary Genitourinary: reports: Frequency, Urgency, Nocturia - Musculoskeletal Musculoskeletal: reports: Back pain, Joint swelling - Integumentary Integumentary: reports: Dryness, Pigment changes, Nail changes, Hair changes - Neurological Neurological: reports: Focal weakness, Dizziness, Memory problems, Pre-existing deficit, Abnormal gait, Slurred speech - Psychiatric Psychiatric: reports: Hallucinations, Other (severe schizophrenia) - Endocrine Endocrine: reports: Polyuria, Polydypsia - Hematologic/Lymphatic Hematologic/Lymphatic: reports: Anemia - All Other Systems All Other Systems: reports: Reviewed and negative Prior Level of Functionality: Ambulatory, incarcerated, no reports of recent falls Exam - Vital Signs Reviewed Vital Signs: Yes Vital Signs: Vital Signs x48h Pulse Resp BP Pulse Ox 07/26/19 11:02 110 H 20 156/109 H 100 - Physical Exam General Appearance: positive: Alert, Moderate distress, Anxious ENT: positive: Pharyngeal erythema, Dry mucous membranes Respiratory: positive: Chest non-tender, Other (diminshed in bilateral bases) Cardiovascular: positive: Irregularly irregular, JVD present, Systolic murmur, Diastolic murmur, Gallop/S3 Peripheral Pulses: positive: 1+ Abdomen: positive: Tenderness, Guarding, Hepatomegaly, Abnml bowel sounds Back: positive: Nml inspection Skin: positive: Warm, Dry Extremities: positive: Non-tender, Pedal edema, Joint swelling, Other (BUE non- pitting edema BLE pitting +2 edema Abdominal edema) Neurologic/Psychiatric: positive: Weakness, Sensory loss, Slurred/abnml speech (short phrases spoken language barrier), Depressed mood/affect Reflexes: Bicep (R): 2+, Bicep (L): 2+ Conclusion/Plan - Problem List (1) Acute hyponatremia Conclusion/Plan: -Severe hyponatremia (<120) -Serum sodium is 115 -Reports of the patient drinking endless amounts of free water -Baseline severe schizophrenia, difficult to establish current mentation -Start IV Lasix 60mg BID once IV access is established -Close monitoring for seizure activities, or worsening of mental status -Rechecking labs Q6 hours until serum sodium is greater than 120 -Checking urine osmo, serum osmo, urine sodium which are pending Psychogenic polydipsia -Reports from the detention of the patient drinking an excessive amount of free water -Likely due to underlying psychiatric illness, rather than a side effect of his regular medications Acute on chronic HFrEF (heart failure with reduced ejection fraction) -Last echo from 04/08/2019 shows severe globally impaired LV with a EF of less than 20%, RV enlargement, severe RV impairment, moderate regurg, RVSP at rest of 41 mmHg -Med list provided by charo shows inadequate treatment of his HF with him only taking Spironolactone and a reduced amount of lisinopril -On exam, slight + JVD, BUEs edema, pitting edema to BLEs, shortness of breath which becomes worse when lying flat -Start IV Lasix of 60 mg BID -Resume prior doses as per Dr. Barbour from March 2019 discharge summary to be continued while the patient is in detention -Strict I/Os, daily weights, indwelling baumann if any urinary retention is found -Await final echo results, ordered and pending Dilated cardiomyopathy -Record review March 2019 admission notes; patient is thought to have been first diagnosed around 1 year ago -No angio results or other work-up have been available -Improvement of EF from 15% to 40% on meds, in the past -Preliminary echo from this stay showed a prior EF of less than 20%, improved to ~30% today -Echo also showing; mild tricuspid regurgitation, moderate mitral regurgitation and pulmonary HTN with PA pressure 41 mmHg -A new hs-troponin lab has been added to the 1800 labs, no chest pain per patient when asked using the box annealer Schizophrenia -Zyprexa and Risperdal from the [facility] med list -Pharmacy is doing a medication review -Neither of which may cause current symptoms or hyponatremia -Continue meds Urinary retention -Listed in past medical history -Orders to insert baumann if post void residuals are found -Continues to have very frequent urination since arriving on the nursing floor, so a nursing order states ok to hold off with baumann - Lab Results Lab results reviewed: Yes Fish Bones: 07/26/19 12:05 07/26/19 12:05 Core Measures - Anticipated LOS I expect patient to be DC'd or transferred within 96 hours.: Yes - DVT/VTE - Prophylaxis VTE/DVT Device ordered at admit?: Yes VTE/DVT Prophylaxis med ordered at admit?: Yes - Stroke - Rehab Assessment Rehab services assessment to be ordered?: No Not Ordered - Medical Reason: Contraindicated - AMI - Statin at Admit Aspirin Prescribed on Admit: Yes
[2019-07-26] MEDS ORDERED: LIDOCAINE/PRILOCAINE 2.5% CREAM 5 GM TUBE TOP PRN (14:42)
[2019-07-26 15:15] LABS: MUDS CUTOFF CONCENTRATIONS CUTOFF CONC BELOW:
[2019-07-26 15:26] LABS: BILIRUBIN,URINE NEGATIVE (NEGATIVE); GLUCOSE, URINE (UA) NEGATIVE (NEGATIVE); KETONES,URINE (UA) TRACE mg/dL (NEGATIVE); LEUKOCYTE ESTERASE, URINE NEGATIVE (NEGATIVE); NITRITE,URINE NEGATIVE (NEGATIVE); OCCULT BLOOD,URINE TRACE-LYSE (NEGATIVE); PH,URINE 5.5 PH (5.0-7.5); PROTEIN,URINE NEGATIVE (NEGATIVE); UROBILINOGEN,URINE 0.2 (NORMAL) E.U./dL (NORMAL)
[2019-07-26 15:40] LABS: CLARITY,URINE CLEAR (CLEAR)
[2019-07-26 15:48] LABS: AMPHETAMINE SCREEN,URINE NEGATIVE (NEGATIVE); BENZODIAZEPINES SCREEN, URINE NEGATIVE (NEGATIVE); COCAINE SCREEN URINE NEGATIVE (NEGATIVE); METHADONE SCREEN, URINE NEGATIVE (NEGATIVE); METHAMPHETAMINES SCREEN, URINE NEGATIVE (NEGATIVE); OPIATE SCREEN, URINE NEGATIVE (NEGATIVE); OXYCODONE SCREEN, URINE NEGATIVE (NEGATIVE); PROPOXYPHENE SCREEN, URINE NEGATIVE (NEGATIVE); TRICYCLIC ANTIDEPRESSANT,URINE NEGATIVE (NEGATIVE)
[2019-07-26 15:57] LABS: RBC,URINE None Seen /HPF (0-5); SQUAMOUS EPITHELIAL CELL,UR NONE SEEN (<= Few)
[2019-07-26 15:58] LABS: BACTERIA,URINE None Seen /HPF (None Seen)
[2019-07-26] MEDS: SODIUM CHLORIDE FLUSH 0.9% 10 ML SYRINGE IVP SCH (16:34)
[2019-07-26] MEDS: FUROSEMIDE 100 MG/10 ML VIAL IVP SCH (16:34)
--- NOTE | 2019-07-26 17:48 | PHARMACY PROGRESS NOTE ---
- Best Possible Medication History Admit Date and Time: 07/26/19 1256 Processed by: Pharmacy Medication History completed: Yes Patient Interview: Pt unable to participate Secondary Source(s): Written medication list As the person ultimately responsible for medication therapy, providers are able to order a medication from an existing home medication list in [facility] via the "Reconcile Routine" prior to Confirmation of that medication by accounting support specialist. Such practice is discouraged except when the physician, in their clinical judgment, deems that a medical need exists for a medication without regard to previous use.
[2019-07-26 19:02] LABS: CALCIUM 9.6 mg/dL (8.5-10.3); CREATININE 0.7 mg/dL (0.6-1.2)
[2019-07-26 19:25] LABS: INR 1.2 (0.8-1.2); PT - PROTHROMBIN TIME 13.5 secs (9.9-12.6)
[2019-07-26] MEDS: carvediloL 3.125 MG TABLET PO SCH (19:26)
[2019-07-26] MEDS: MAGNESIUM OXIDE 400 MG TABLET PO SCH (19:26)
[2019-07-26 22:35] LABS: CALCIUM 9.4 mg/dL (8.5-10.3); CREATININE 0.9 mg/dL (0.6-1.2)
[2019-07-27] MEDS ORDERED: HALOPERIDOL 5 MG/ML VIAL IVP PRN (00:45)
[2019-07-27] MEDS ORDERED: DEXTROSE 5% 1,000 ML IV SCH (01:00)
[2019-07-27] MEDS: SODIUM CHLORIDE FLUSH 0.9% 10 ML SYRINGE IVP SCH ×2 (01:34→09:17)
[2019-07-27] MEDS ORDERED: ONDANSETRON 4 MG/2 ML VIAL IVP PRN (01:43)
[2019-07-27 05:17] LABS: HGB - HEMOGLOBIN 13.2 g/dL (14.0-18.0); MEAN CORPUSCULAR HEMOGLOBIN 27.9 pg (27.0-31.0); MEAN CORPUSCULAR HGB CONC 34.8 g/dL (32.0-36.0); MEAN CORPUSCULAR VOLUME 80.1 fL (80.0-94.0); MEAN PLATELET VOLUME 8.2 fL (7.4-11.4); RED BLOOD COUNT 4.73 10^6/uL (4.70-6.10); RED CELL DISTRIBUTION WIDTH 13.9 % (12.0-15.0); WHITE BLOOD COUNT 6.7 x10^3/uL (4.8-10.8)
[2019-07-27 05:23] LABS: CALCIUM 9.6 mg/dL (8.5-10.3); CREATININE 0.9 mg/dL (0.6-1.2)
[2019-07-27] MEDS: FUROSEMIDE 100 MG/10 ML VIAL IVP SCH (06:06)
--- NOTE | 2019-07-27 08:43 | Discharge Plan ---
Discharge Plan Problem Reviewed?: Yes Disposition: Home, Self Care Condition: Good Prescriptions: carvediloL [Coreg] 6.25 mg PO BIDWM #60 tablet Furosemide 20 mg PO DAILY #30 tablet Magnesium Oxide [Mag Ox] 400 mg PO DAILYWM #30 tablet OLANZapine [Olanzapine] 10 mg PO DAILY #30 tablet Diet: Cardiac Activity Restrictions: Activity as Tolerated Shower Restrictions: No Driving Restrictions: No Instruction Topics: Magnesium Salts capsules or tablets immediate release, Carvedilol tablets, Furosemide injection Health Concerns: Water intoxication Hyponatremia CHF exacerbation Schizophrenia Plan of Treatment: Continue heart failure medications Limit free water intake to 2 liters in 24 hours Avoid excessive water consumption Care Goals: Medical guided therapy for heart failure Avoid hospital stays or ED visits Assessment: The patient was admitted to the hospital for severe hyponatremia (low serum sodium), which quickly resolved on its own with very little interventions. His medication list from the intermediate showed that he was no longer on Coreg, which is medically indicated for proper medical guided therapy in heart failure. A new echocardiogram was completed showing an improvement in his ejection fraction, but still has cardiomyopathy. His overall appearance improved, and appeared less confused. Additional Instructions or Follow Up instructions: The patient remained in police custody for his entire hospital stay and returned back to intermediate. No Smoking: If you smoke, Please STOP! Call for help.
[2019-07-27] MEDS ORDERED: risperiDONE 1 MG TABLET PO SCH (09:00)
[2019-07-27] MEDS ORDERED: OLANZapine ODT 5 MG TABLET TL SCH (09:00)
[2019-07-27] MEDS: MAGNESIUM OXIDE 400 MG TABLET PO SCH (09:16)
[2019-07-27] MEDS: carvediloL 3.125 MG TABLET PO SCH (09:17)
--- NOTE | 2019-07-27 10:09 | DISCHARGE SUMMARY ---
Discharge Summary Admit Date: 07/26/19 Discharge Date: 07/27/19 Discharging Provider: GABBY Palencia Code Status: Attempt Resuscitation Condition at Discharge: Good Discharge Disposition: 01 Home, Self Care - DIAGNOSES Admission Diagnoses: Acute hyponatremia Psychogenic polydipsia Acute on chronic HFrEF (heart failure with reduced ejection fraction) Dilated cardiomyopathy Schizophrenia Urinary retention Discharge Diagnoses with Status of Each Condition: Acute hyponatremia-Resolved Psychogenic polydipsia-Chronic, strict supervision with patient upon returning to intermediate. Limit free water to 2.5 L Acute on chronic HFrEF (heart failure with reduced ejection fraction)-Resolved, continue Coreg, spironolactone, and lasix Dilated cardiomyopathy-Chronic, stable Schizophrenia-Chronic, baseline mentation Urinary retention-Chronic, urinating well, bladder scans insignificant - HPI History of Present Illness: Juany Nance is a 34-year old Maldivian male with a prominent past medical history of schizophrenia, heart failure with reduced ejection fraction, dilated cardiomyopathy, hypertension, and urinary retention. The patient was brought in via police in all extremity hand cuffs intermediate for concerns of shortness of breath, vomiting, and reports of excessive water consumption. No history is able to be obtained from the patient due to his acute confusion, schizophrenia (even with t he assistance of a Maldivian sera, instructor nurse). Labs show Hgb 12.1, Hct 33.2, MCV 79.4, Neut # 7.1, sodium 115, potassium 3.7, chloride 79, total bilirubin 4.1, alk phos 131, BNP 31, total protein 8.3, urine was not collected. The patient remains in custody and has hand cuffs on ALL 4 extremities with 2 officers present in the room. He cannot contribute to his review of systems exam questions (instructor nurse services), but denies chest pain, nausea, headaches, falls, or bleeding when asked. He will be admitted to inpatient for intensive IV diuresis, every 6 hour electrolyte panel and close monitoring for seizures or worsening mentation. - HOSPITAL COURSE Hospital Course: he patient was admitted to the hospital for severe hyponatremia (low serum sodium), which quickly resolved on its own with very little interventions. His medication list from the intermediate showed that he was no longer on Coreg, which is medically indicated for proper medical guided therapy in heart failure. A new echocardiogram was completed showing an improvement in his ejection fraction, but still has cardiomyopathy. His overall appearance improved, and appeared less confused. The patient returned in custody back to intermediate from his patient room. [facility] staff confirmed that they had the medications needed to continue to treat the patient's heart failure. - ALLERGIES Allergies/Adverse Reactions: Allergies Allergy/AdvReac Type Severity Reaction Status Date / Time No Known Drug Allergies Allergy Verified 02/20/18 00:07 - MEDICATIONS Home Medications: Ambulatory Orders Medication Instructions Recorded Confirmed Furosemide 20 mg PO DAILY #30 tablet 07/27/19 Magnesium Oxide [Mag Ox] 400 mg PO DAILYWM #30 tablet 07/27/19 OLANZapine [Olanzapine] 10 mg PO DAILY #30 tablet 07/27/19 Risperidone [Risperdal] 2 mg PO DAILY #30 tablet 07/27/19 07/26/19 Spironolactone 12.5 mg PO DAILY #30 tablet 07/27/19 07/26/19 carvediloL [Coreg] 6.25 mg PO BIDWM #60 tablet 07/27/19 lisinopriL [Zestril] 5 mg PO DAILY #30 07/27/19 07/26/19 - PHYSICAL EXAM AT DISCHARGE General Appearance: positive: No acute distress, Alert Eyes Bilateral: positive: No lid inflammation ENT: positive: No signs of dehydration Neck: positive: No JVD, Trachea midline Respiratory: positive: Chest non-tender, No respiratory distress, Breath sounds nml Cardiovascular: positive: Regular rate & rhythm, No gallop, Systolic murmur, Decreased pulse(s) Peripheral Pulses: positive: 1+ Abdomen: positive: Non-tender, Nml bowel sounds, Other (enlarged abdominal gir th-baseline, reduced since admission) Back: positive: Nml inspection Skin: positive: Color nml, No rash, Warm Extremities: positive: Non-tender, Full ROM, Pedal edema (chronic, +1 pitting) Neurologic/Psychiatric: positive: CN's nml (2-12), Motor nml, Sensory loss, Depressed mood/affect, Other (baseline cognitive delay-improved mentation with less impulsive behaviors) Reflexes: Bicep (R): 3+, Bicep (L): 3+ - LABS Result Diagrams: 07/27/19 05:05 07/27/19 05:05 - FOLLOW UP Follow Up: Labs in one week, regular follow up with PCP/Mask Design Engineer - TIME SPENT Time Spent in Discharge (Minutes): 55
[2019-07-27 10:20] VITALS: BP 125/84
== END 2019-07-27 10:30 | disposition home or self-care (01) | DRG 640 ==
LOC: EDSEX → ED 10:56 → MS3 12:52
PROVIDERS: ADMIT Nurse Practitioner; ATTEND Nurse Practitioner
DX: E87.1 Hypo-osmolality and hyponatremia (principal); I50.23 Acute on chronic systolic (congestive) heart failure; I42.0 Dilated cardiomyopathy; R63.1 Polydipsia; F54 Psychological and behavioral factors associated with disorders or diseases classified elsewhere; I11.0 Hypertensive heart disease with heart failure; F20.9 Schizophrenia, unspecified; I08.1 Rheumatic disorders of both mitral and tricuspid valves; R11.10 Vomiting, unspecified; F17.200 Nicotine dependence, unspecified, uncomplicated; Z79.899 Other long term (current) drug therapy; Z87.898 Personal history of other specified conditions
CPT/HCPCS: 36415; 71046; 80048; 80053; 80306; 81001; 83690; 83735; 83880; 83930; 83935; 84100; 84300; 84443; 84484; 85025; 85027; 85610; 93306; 99285; A9270; J1940; J3490; 87086

== ENCOUNTER 2019-08-02 12:11 | Emergency (ER) | payer OTHER, MEDICAID ==
--- NOTE | 2019-08-02 12:21 | ED Physician Documentation ---
PD HPI ALTERED MENTAL STATUS - Stated complaint Stated Complaint: AMS - Chief complaint Chief Complaint: Neuro - History obtained from History obtained from: Patient (Minimal history is available from the patient due to his schizophrenia which is severe.), Police - History of Present Illness Timing - onset: Today (34-year-old gentleman with severe schizophrenia, dilated cardiomyopathy and history of psychogenic polydipsia presents from care home for altered mental status which apparently has resolved. Reportedly he was unarousable and quite hypertensive. Now seems back to normal) - Additional information Additional information: He has been on a strict 2 L water restriction at the care home Review of Systems Unable to obtain: Uncooperative PD PAST MEDICAL HISTORY - Past Medical History Cardiovascular: Congestive heart failure, Hypertension, Peripheral Vascular Disease, Murmur, Other Respiratory: None Neuro: Headaches, Peripheral neuropathy, Tremors Endocrine/Autoimmune: None GI: None DIRECTOR DATA ARCHITECTURE: None : Retention, Nocturia, Frequency HEENT: None Psych: Schizophrenia Musculoskeletal: Fatigue Derm: None - Past Surgical History Past Surgical History: No - Present Medications Home Medications: Ambulatory Orders Medication Instructions Recorded Confirmed Furosemide 20 mg PO DAILY #30 tablet 07/27/19 Magnesium Oxide [Mag Ox] 400 mg PO DAILYWM #30 tablet 07/27/19 OLANZapine [Olanzapine] 10 mg PO DAILY #30 tablet 07/27/19 Risperidone [Risperdal] 2 mg PO DAILY #30 tablet 07/27/19 07/26/19 Spironolactone 12.5 mg PO DAILY #30 tablet 07/27/19 07/26/19 carvediloL [Coreg] 6.25 mg PO BIDWM #60 tablet 07/27/19 lisinopriL [Zestril] 5 mg PO DAILY #30 07/27/19 07/26/19 - Allergies Allergies/Adverse Reactions: Allergies Allergy/AdvReac Type Severity Reaction Status Date / Time No Known Drug Allergies Allergy Verified 08/02/19 12:15 - Social History Does the pt smoke?: Yes Smoking Status: Never smoker Does the pt drink ETOH?: No Does the pt have substance abuse?: No - Immunizations Immunizations are current?: No - POLST Patient has POLST: No POLST Status: Full Code PD ED PE NORMAL - Vitals Vital signs reviewed: Yes - General General: No acute distress, Well developed/nourished - HEENT HEENT: PERRL - Neck Neck: Supple, no meningeal sign, No bony TTP - Cardiac Cardiac: RRR, No murmur - Respiratory Respiratory: No respiratory distress, Clear bilaterally - Abdomen Abdomen: Non tender - Back Back: No CVA TTP, No spinal TTP - Extremities Extremities: No edema, No calf tenderness / cord, Other (No significant pedal edema) - Neuro Neuro: descriptive catalog librarian 2-12 intact, No motor deficit, No sensory deficit Eye Opening: Spontaneous Motor: Obeys Commands Results - Vitals Vitals: Vital Signs - 24 hr 08/02/19 12:15 Temperature 36.7 C Heart Rate 80 Respiratory 14 Rate Blood Pressure 148/88 H O2 Saturation 100 Oxygen O2 Source Room air - Labs Labs: Laboratory Tests 08/02/19 08/02/19 08/02/19 12:35 12:35 12:35 WBC 7.2 RBC 4.40 L Hgb 12.9 L Hct 37.7 L MCV 85.7 MCH 29.3 MCHC 34.2 RDW 13.6 Plt Count 215 MPV 7.9 Neut # (Auto) 4.5 Lymph # (Auto) 2.0 Milam # (Auto) 0.6 Eos # (Auto) 0.2 Baso # (Auto) 0.0 Absolute Nucleated RBC 0.00 Nucleated RBC % 0.0 Sodium 138 Potassium 4.0 Chloride 97 L Carbon Dioxide 29 Anion Gap 12.0 BUN 14 Creatinine 0.8 Estimated GFR (MDRD) 111 Glucose 103 H Calcium 9.6 Total Bilirubin 1.0 AST 40 ALT 60 Alkaline Phosphatase 161 H B-Natriuretic Peptide 30 Total Protein 8.6 H Albumin 4.4 Globulin 4.2 Albumin/Globulin Ratio 1.0 Lipase 34 PD MEDICAL DECISION MAKING - ED course Complexity details: d/w outbound sales consultant (I spoke with Sharonda Crowder, nurse practitioner at the care home. She had not seen him today, her understanding was that his blood pressure had been high over the weekend. We agreed on work-up going forward.) ED course: 34-year-old gentleman with history of schizophrenia presents from care home with reported altered mental status but seems back to baseline now, also reported hypertension but blood pressure was only 148/88 here. His work-up is reassuring with a sodium that is now 138, negative BNP, stable CBC. Departure - Departure Disposition: 01 Home, Self Care Clinical Impression: Dilated cardiomyopathy Schizophrenia Qualifiers: Schizophrenia type: unspecified Qualified Code(s): F20.9 - Schizophrenia, unspecified Altered mental status Qualifiers: Altered mental status type: transient alteration of awareness Qualified Code(s): R40.4 - Transient alteration of awareness Condition: Stable Record reviewed to determine appropriate education?: Yes Instructions: ED Paranoid Schizophrenia Comments: His sodium today is good at 138. No evidence of acute heart failure. Continue current treatment and return as needed.
[2019-08-02 12:38] LABS: BASOPHILS % (AUTO) 0.4 %; EOSINOPHILS # (AUTO) 0.2 10^3/uL (0.0-0.7); EOSINOPHILS % (AUTO) 2.1 %; HGB - HEMOGLOBIN 12.9 g/dL (14.0-18.0); LYMPHOCYTES % (AUTO) 27.2 %; MEAN CORPUSCULAR HEMOGLOBIN 29.3 pg (27.0-31.0); MEAN CORPUSCULAR HGB CONC 34.2 g/dL (32.0-36.0); MEAN CORPUSCULAR VOLUME 85.7 fL (80.0-94.0); MEAN PLATELET VOLUME 7.9 fL (7.4-11.4); MONOCYTES # (AUTO) 0.6 10^3/uL (0.0-1.0); MONOCYTES % (AUTO) 8.1 %; NEUTROPHILS # (AUTO) 4.5 10^3/uL (1.5-6.6); NEUTROPHILS % (AUTO) 61.9 %; PLT - PLATELET COUNT 215 10^3/uL (130-450); RED CELL DISTRIBUTION WIDTH 13.6 % (12.0-15.0); WHITE BLOOD COUNT 7.2 x10^3/uL (4.8-10.8)
[2019-08-02 12:52] LABS: ALBUMIN 4.4 g/dL (3.2-5.5); CALCIUM 9.6 mg/dL (8.5-10.3); CREATININE 0.8 mg/dL (0.6-1.2); TOTAL PROTEIN 8.6 g/dL (6.7-8.2)
[2019-08-02 13:34] VITALS: BP 136/84
== END 2019-08-02 13:34 | disposition home or self-care (01) ==
LOC: ED 12:11
DX: R40.4 Transient alteration of awareness (principal); F20.9 Schizophrenia, unspecified; I42.0 Dilated cardiomyopathy; I11.0 Hypertensive heart disease with heart failure; I50.9 Heart failure, unspecified
CPT/HCPCS: 36415; 80053; 80074; 83690; 83880; 85025; 99281; 99283

== ENCOUNTER 2019-08-09 07:00 | Outpatient (CLI) | payer OTHER, MEDICAID ==
[2019-08-09 16:53] LABS: ALBUMIN 4.3 g/dL (3.2-5.5); ALBUMIN/GLOBULIN RATIO 1.1 (1.0-2.2); BILIRUBIN,TOTAL 0.6 mg/dL (0.2-1.0); CALCIUM 9.6 mg/dL (8.5-10.3); CREATININE 0.8 mg/dL (0.6-1.2); TOTAL PROTEIN 8.2 g/dL (6.7-8.2)
== END 2019-08-09 23:59 | disposition home or self-care (01) ==
LOC: LAB.R 07:00
PROVIDERS: ATTEND Registered Nurse
DX: E87.1 Hypo-osmolality and hyponatremia (principal)
CPT/HCPCS: 80053